=== PATIENT | male | born 1960 | race Caucasian/White ===

== ENCOUNTER 2020-03-11 16:45 | Emergency (ER) | payer OTHER, SELFPAY ==
--- NOTE | ~2020-03-11 | XR_ITS ---
EXAMINATION: XR abdomen/kub 1V INDICATION: Right flank pain TECHNIQUE: Supine views of the abdomen were obtained on 2 radiographs. COMPARISON: 06/29/2004 FINDINGS: A 5 mm calcification projects in the expected location of the right proximal ureter at the level of the right L3 transverse process. A 5 mm stone projects in the left mid kidney. There are mul tiple phleboliths of the pelvis. Changes of suspected left inguinal hernia repair are noted. The ameena l gas pattern is normal. A moderate volume of colonic stool is present. IMPRESSION: 1. Likely right proximal ureteral stone. 2. Left nephrolithiasis. Reviewed, dictated and finalized at location A.
--- NOTE | 2020-03-11 16:50 | ED.GENADULT ---
HPI - General Adult General Chief complaint: Urogenital-Male Stated complaint: Pos kidney stone Time Seen by Provider: 03/11/20 16:49 Source: patient Mode of arrival: ambulatory Limitations: no limitations History of Present Illness HPI narrative: 60-year-old male patient presents to the [facility] with complaints of urinary symptoms that started about 130 this afternoon. Patient states he has had some right-sided back pain that wraps around to his side and radiates down the groin. Patient states it is painful when he sits at times. Patient denies any pain with urination or any odor to the urine. Patient states he has had a little bit of nausea but denies vomiting or diarrhea. Denies any fevers, body aches or chills. Patient states he has had kidney stones before in the past and is always passed of his and denies any issues in needing surgery for this in the past. Related Data Allergies Allergy/AdvReac Type Severity Reaction Status Date / Time No Known Allergies Allergy Mild Verified 03/11/20 16:54 Review of Systems Review of Systems: Narrative: CONSTITUTIONAL: Denies fever, chills, or sweats. EYES: Denies visual changes, redness, or discharge. ENT: Denies rhinorrhea, congestion, sore throat, or otalgia. CARDIOVASCULAR: Denies chest pain, palpitations, or edema. RESPIRATORY: Denies cough or dyspnea. GASTROINTESTINAL: Denies abdominal pain, positive nausea, denies vomiting, or diarrhea. GENITOURINARY: Denies dysuria or hematuria. SKIN: Denies rash or itching. MUSCULOSKELETAL: Positive right-sided low back pain with radiation to the right side groin, denies joint pain, or myalgia. NEUROLOGIC: Denies headache, numbness, or weakness. PSYCHIATRIC: Denies anxiety or depression. [facility] Past Medical History Medical History Erectile dysfunction Essential (primary) hypertension Hypertension Nephrolithiasis Umbilical hernia without mention of obstruction or gangrene Surgical History Surgical History History of inguinal hernia repair, bilateral 1986 History of sinus surgery 1980s Family History Family History Mother Breast cancer Father Emphysema, unspecified Social History Social History Smoking status: Never smoker Second hand tobacco smoke exposure: No Alcohol intake: current Substance use: never Substance use type: does not use Comments At the time of my signature I agree with nursing past medical history, surgical, social, and family history. There is no relevant family history pertinent to the presenting complaint. Exam Narrative: Exam Narrative: GENERAL: Well-appearing, well-nourished, and in no acute distress. HEAD: Normocephalic, atraumatic. EYES: PERRLA and EOMI. ENT: Nares clear, no rhinorrhea or epistaxis. Mucous membranes moist. NECK: Supple. No lymphadenopathy CHEST: Clear to auscultation. No respiratory distress. HEART: Regular rate and rhythm. No murmur heard. Normal peripheral pulses. ABDOMEN: Soft, nontender, nondistended, normal active bowel sounds. Very slight tenderness noted on right-sided CVA percussion. EXTREMITIES: Normal range of motion. No edema. SKIN: Warm, dry, no rash. NEURO: No focal deficits. Alert and oriented x3. Course Reevaluation(s) Reevaluation #1: Reevaluated patient after KUB had resulted. Discussed with him that it does show that he has some kidney stones in the bilateral sides. Discussed with patient about his pain. Patient states that his pain right now started 3 out of 10 states it is not excruciating and is tolerable. Discussed with patient that since his urine does not show any evidence of infection and the pain does not seem to be that bad right now I will go ahead and discharge him home with some Flomax to help propel down the kidney stones
[2020-03-11 16:51] VITALS: BP 172/88; PULSE 78; RESP 12; TEMP 37.1; O2SAT 99
== END 2020-03-11 17:47 | disposition home or self-care (01) ==
PROVIDERS: Emergency Provider Nurse Practitioner Family; PCP Family Medicine
DX: N20.0 Calculus of kidney (principal); Z87.442 Personal history of urinary calculi
CPT/HCPCS: 74018; 81003; 99213; G0463

== ENCOUNTER 2020-03-13 12:51 | Day surgery (SDC) | payer OTHER, SELFPAY ==
[2020-03-13] VITALS (11 sets, daily range): BP systolic 103–159; BP diastolic 58–88; PULSE 70–91; RESP 11–18; TEMP 36.8–37.3; O2SAT 96–100; BMI 26.3
--- NOTE | ~2020-03-13 | CT_ITS ---
EXAMINATION: CT abdomen pelvis wo con DATE: 03/13/2020 15:01 INDICATION: Flank pain. History of kidney stones. TECHNIQUE: Computed tomography (CT) of the abdomen and pelvis was performed without intravenous contr ast. The dose-length product was 266.18 mGy-cm. Automated exposure control and iterative reconstructi on technique were employed. COMPARISON: CT dated 06/29/2004 FINDINGS: Bibasilar dependent atelectasis. Heart size normal. No significant pleural or pericardial e ffusion. There is a 5 mm mid right ureteral stone with mild hydronephrosis. There are nonobstructing bilateral renal stones. The liver, spleen, pancreas, adrenal glands are unremarkable. Bowel pattern is nonobstructive. Small fat-containing umbilical hernia. Normal appendix. Mild lumbar spondylosis. No acute osseous abnormali ty. There are surgical changes of left inguinal hernia repair. No free air or free fluid. IMPRESSION: 1. 5 mm right mid ureteral stone at the L4 level with mild hydronephrosis. 2: Bilateral nephrolithiasis. Reviewed, dictated and finalized at location A.
--- NOTE | ~2020-03-13 | XR_ITS ---
EXAMINATION: XR retrograde pyelogram RT INDICATION: Right ureteral stone TECHNIQUE: Five intraoperative fluoroscopic images are submitted for review. Total fluoroscopic time is 50.3 seconds. The DAP is [id number] mGym2. COMPARISON: None available FINDINGS: Right-sided retrograde pyelogram demonstrates moderate right hydronephrosis. A right manager internship al ureteral stent is placed in expected position. Please refer to procedure note for full details. IMPRESSION: 1. Moderate right hydronephrosis with right internal ureteral stent in expected position. Reviewed, dictated and finalized at location A.
--- NOTE | ~2020-03-13 | XR_ITS ---
EXAMINATION: XR abdomen/kub 1V INDICATION: Flank pain, ureteral stone TECHNIQUE: Supine views of the abdomen were obtained on 2 radiographs. COMPARISON: CT from today FINDINGS: The known right ureteral stone is not well demonstrated. A 5 mm calcification projecting ne ar the right sacrum could reflect interval distal migration of the stone. There is a 5 mm stone in th e left kidney. A moderate volume of colonic stool is present. The bowel gas pattern is normal. There are surgical changes of bilateral inguinal hernia repair. IMPRESSION: 1. Possible interval distal migration of the known right ureteral stone projecting over the right sac rum. 2. Left nephrolithiasis. Reviewed, dictated and finalized at location A. IMPRESSION: 1. Possible interval distal migration of the known right ureteral stone project ing over the right sacrum. 2. Left nephrolithiasis.
[2020-03-13 13:08] LABS: Basophils Absolute Auto 0.1 K/mm3 (0.0-0.1); Basophils Percent Auto 0.6 % (0.2-1.2); Eosinophils Absolute Auto 0.1 K/mm3 (0-0.3); Hematocrit 41.9 % (42.0-52.0); Hemoglobin 14.4 g/dL (14.0-18.0); Immature Granulocyte Absolute 0.04 K/mm3 (0.00-0.031); Immature Granulocyte Percent A 0.4 % (0-0.5); Lymphocytes Absolute Auto 0.85 K/mm3 (0.9-3.2); Lymphocytes Percent Auto 8.6 % (18.3-44.2); Mean Corpuscular HGB Conc 34.4 g/dl (32-36); Mean Corpuscular Hemoglobin 29.4 pg (26-34); Mean Corpuscular Volume 85.7 fl (80-100); Mean Platelet Volume 8.9 fl (7.4-10.4); Monocytes Absolute Auto 0.5 K/mm3 (0.1-0.6); Neutrophils Absolute Auto 8.4 K/mm3 (1.3-6.7); Neutrophils Percent Auto 84.4 % (45.5-73.1); Platelet Count Result 199 k/mm3 (150-375); Red Blood Count 4.89 M/mm3 (4.6-6.20); Red Cell Distribution Width 12.6 % (11.5-14.5); White Blood Count 9.9 K/mm3 (4.5-10.0)
[2020-03-13 13:18] LABS: Anion Gap 5 mmol/L (8-16); Blood Urea Nitrogen 21 mg/dL (9-20); Calcium 9.4 mg/dL (8.4-10.2); Carbon Dioxide 31 mmol/L (22-30); Chloride 99 mmol/L (98-107); Estimated CRCL calculation 72 ml/min; Estimated Glomerular Filt Rate > 60; Glucose 132 mg/dL (75-110); Potassium 4.1 mmol/L (3.4-5.0); Sodium 135 mmol/L (137-145)
[2020-03-13 13:19] LABS: Add Urine Microscopic? YES; Appearance Urine Clear (Clear); Bilirubin Urine Negative (Negative); Blood Urine 3+ (Negative); Color Urine Yellow (Yellow); Glucose Urine UA Negative (Negative); Ketones Urine Negative (Negative); Leukocyte Esterase Ur Negative LEU/UL (Negative); Mucus Urine Heavy /lpf; Nitrate Urine Negative (Negative); Protein Urine 2+ mg/dL (Negative); RBC Urine >75 /hpf (0-2); Specific Grav Ur 1.024 (1.001-1.035); Urobilinogen Urine Negative mg/dL (<2.0)
[2020-03-13] MEDS: ONDANSETRON INJ 4 MG/2 ML VIAL IV PUSH (14:27)
[2020-03-13] MEDS: SODIUM CHLORIDE 0.9% IV 1,000 ML 999 ML IV CONT (14:27)
--- NOTE | 2020-03-13 14:55 | ED.ABDPAIN ---
HPI - Abdominal Pain General Chief Complaint: Urogenital-Male <Júnior Hylton TyLILIANA Last Filed: 03/13/20 17:11> Stated Complaint: kidney stone <Júnior Hylton TyLILIANA Last Filed: 03/13/20 17:11> Time Seen by Provider: 03/13/20 14:03 <Júnior Hylton TyLILIANA Last Filed: 03/13/20 17:11> Source: patient <Júnior CrawfordLILIANA Jm Last Filed: 03/13/20 17:11> Mode of arrival: ambulatory <Júnior Hylton TyLILIANA Last Filed: 03/13/20 17:11> Limitations: no limitations <Júnior Hylton TyLILIANA Last Filed: 03/13/20 17:11> History of Present Illness HPI narrative: Patient is a 60-year-old male who presents to emergency department for evaluation of right flank pain coupled with nausea and vomiting over the last several days with history of urolithiasis seen in urgent care given Flomax and pain medication but continues to have pain and nausea and vomiting today patient presents uncomfortable in no distress <Júnior Hylton TyOLYMaxim Last Filed: 03/13/20 17:11> Related Data Allergies/Adverse Reactions: Allergies Allergy/AdvReac Type Severity Reaction Status Date / Time No Known Allergies Allergy Mild Verified 03/11/20 16:54 <Júnior Hylton TyLILIANA Last Filed: 03/13/20 17:11> Review of Systems Review of Systems: All systems reviewed & are unremarkable except as noted in HPI and below <Júnior Hylton TyLILIANA Last Filed: 03/13/20 17:11> [facility] Past Medical History Medical History: Medical History Erectile dysfunction Essential (primary) hypertension Hypertension Nephrolithiasis Umbilical hernia without mention of obstruction or gangrene <Júnior Crawford PA-C Last Filed: 03/13/20 17:11> Surgical History Surgical History: Surgical History History of inguinal hernia repair, bilateral 1986 History of sinus surgery 1980s <Júnior Crawford PA-C Last Filed: 03/13/20 17:11> Family History Family History: Family History Mother Breast cancer Father Emphysema, unspecified <Júnior Crawford PA-C - Last Filed: 03/13/20 17:11> Social History Social History: Social History Smoking status: Never smoker Second hand tobacco smoke exposure: No Alcohol intake: current Substance use: never Substance use type: does not use Gender identity (if verbalized by the patient): Male <Júnior Crawford PA-C - Last Filed: 03/13/20 17:11> Exam Narrative: Exam Narrative: GENERAL: Well-appearing, well-nourished, and in no acute distress. HEAD: Normocephalic, atraumatic. EYES: PERRLA and EOMI. ENT: Nares clear, no rhinorrhea or epistaxis. Mucous membranes moist. CHEST: Clear to auscultation. No respiratory distress. No wheezes rales or rhonchi HEART: Regular rate and rhythm. No murmur heard. Normal peripheral pulses. ABDOMEN: Soft, right-sided abdominal tenderness to palpation, nondistended, normal active bowel sounds. EXTREMITIES: Normal range of motion. No edema. SKIN: Warm, dry, no rash. NEURO: No focal deficits. Alert and oriented x3. PSYCH: Normal mood and affect. <Júnior Crawford PA-C - Last Filed: 03/13/20 17:11> Course Course Emergency Course: Patient was seen in the emergency department by urology will be <Júnior Crawford PA-C - Last Filed: 03/13/20 17:11> TEAM ASSEMBLER/PA Physician Supervision Patient presenting for evaluation of right flank pain. Vital signs stable the time of assessment. Found to have 5 mm right ureteral stone. Given degree of pain, urology was consulted, patient to go to the OR for likely stent placement. For this patient encounter, I reviewed the TEAM ASSEMBLER or PA documentation, treatment plan, and medical decision making; and I had [id number] time with this patient. <Payton Lewis
[2020-03-13] MEDS: MORPHINE SULFATE (*CRX) 4 MG/ML INJ IV PUSH (15:14)
--- NOTE | 2020-03-13 16:16 | WPDURCON ---
Assessment and Plan Assessment and plan (1) Ureteral calculus, right: Code(s): N20.1 - Calculus of ureter Status: Acute Assessment and Plan: Obtain KUB for surgical planning purposes. Plan to go to the OR: Cystoscopy, Right Stent Placement, retrograde pyelogram. Obtain Consent Keep NPO. Plan to discharge home after case and follow up for outpatient Right ESWL. Urology Consult Note HPI Date Seen: 03/13/20 Primary Care Provider: Niesha Marc MD Consult Narrative Narrative: Bryan Yang is a 60 year old male who presents for worsening right flank pain that started on Wednesday. He developed right flank pain, nausea, vomiting, chills and gross hematuria on Wednesday and was diagnosed via KUB with a right proximal ureteral stone at that time. He was given Flomax and Hydrocodone and states the pain improved until this morning when it worsened again and he developed right flank pain. He denies dysuria, fever or abdominal pain. His UA shows occult blood, otherwise not suggestive of a UTI, culture is pending. WBC is 9.9 and creatinine is 1.10. CT abdomen/pelvis today confirms that the stone has moved to the right mid ureter and measures 5mm. He also has a 5mm left non obstructive stone. Morphine was given but only improved stone to a pain level of 6/10. Review of Systems Cardiovascular: Cardiovascular: Denies chest pain Respiratory: Respiratory: Reports no additional respiratory complaints Gastrointestinal: Gastrointestinal: Denies abdominal pain, Reports nausea and Reports vomiting Genitourinary: Genitourinary: Reports hematuria, Denies genital pain, Denies dysuria, Reports flank pain and Denies urinary frequency [facility] Past Medical History Medical History Erectile dysfunction Essential (primary) hypertension Hypertension Nephrolithiasis Umbilical hernia without mention of obstruction or gangrene Surgical History Surgical History History of inguinal hernia repair, bilateral 1986 History of sinus surgery 1980s Family History Family History Mother Breast cancer Father Emphysema, unspecified Social History Social History Smoking status: Never smoker Second hand tobacco smoke exposure: No Alcohol intake: current Substance use: never Substance use type: does not use Gender identity (if verbalized by the patient): Male Meds Home Medications and Allergies Home Medications Medication Instructions Recorded Confirmed Type quinapril 20 See Rx Instructions .ROUTE 12/13/19 03/11/20 Rx mg-hydrochlorothiazide 25 mg tablet .COMPLEX #90 tablet hydrocodone-acetaminophen [[place]] 1 tablet PO Q6H PRN #10 tablet 03/11/20 Rx tamsulosin [Flomax] 0.4 mg PO DAILY #14 cap 03/11/20 Rx Allergies Allergy/AdvReac Type Severity Reaction Status Date / Time No Known Allergies Allergy Mild Verified 03/11/20 16:54 Vital Signs Vital Signs - 24 hr 03/13/20 12:54 03/13/20 15:14 Temperature 98.4 F Pulse Rate 90 91 Respiratory Rate 18 18 Blood Pressure 146/83 H 150/88 H Pulse Oximetry 98 96 Exam Resp: Effort & Inspection: normal respiratory effort Cardio: Rate: regular rate GI: GI Palp: Yes Soft to palpation and No Tenderness to palpation present (GI) : General: Yes CVA tenderness on the right Extrem: General: no edema Results Labs CBC & Chem 7: 03/13/20 12:59 03/13/20 12:59 Labs: Short CBC 03/13/20 Range/Units 12:59 WBC 9.9 (4.5-10.0) K/mm3 Hgb 14.4 (14.0-18.0) g/dL Hct 41.9 L (42.0-52.0) % Plt Count 199 (150-375) k/mm3 BMP 03/13/20 12:59 Sodium 135 L Potassium 4.1 Chloride 99 Carbon Dioxide 31 H BUN 21 H Creatinine 1.10 Glucose 132 H Calcium 9.4 Urine
--- NOTE | 2020-03-13 17:05 | PC.NURSE ---
Spoke with LAVELL rios in OR. He will be obtaining pt consent in pre-op
--- NOTE | 2020-03-13 17:19 | WPDANESEPPF ---
Anes - Initial Pre Proc Eval Procedure: Operation Date: 03/13/20 18:00 Proposed Procedures p Right Cystoscopy, Right Retrograde Pyelogram, Possible Right Stone Extraction, Possible Right Stent Placement - Flores Dorado MD Date/Time: 03/13/20 17:19 Surgeon: Flores Dorado MD Pre Op Diagnosis: kidney stone Patient Data Age: 60 Gender: M Height: 6 ft 2 in Weight: 92.99 kg Last Vital Signs Temp 36.9 C 03/13/20 17:04 Pulse 87 03/13/20 17:04 Resp 16 03/13/20 17:04 BP 138/71 03/13/20 17:04 Pulse Ox 100 03/13/20 17:04 Allergies Allergy/AdvReac Type Severity Reaction Status Date / Time No Known Allergies Allergy Mild Verified 03/11/20 16:54 Home Medications Medication Instructions Recorded Confirmed Type quinapril 20 See Rx Instructions .ROUTE 12/13/19 03/11/20 Rx mg-hydrochlorothiazide 25 mg tablet .COMPLEX #90 tablet hydrocodone-acetaminophen [[place]] 1 tablet PO Q6H PRN #10 tablet 03/11/20 Rx tamsulosin [Flomax] 0.4 mg PO DAILY #14 cap 03/11/20 Rx Laboratory Tests 03/13/20 03/13/20 03/13/20 12:59 12:59 13:03 WBC 9.9 K/mm3 K/mm3 (4.5-10.0) RBC 4.89 M/mm3 M/mm3 (4.6-6.20) Hgb 14.4 g/dL g/dL (14.0-18.0) Hct 41.9 % L % (42.0-52.0) MCV 85.7 fl fl (80-100) MCH 29.4 pg pg (26-34) MCHC 34.4 g/dl g/dl (32-36) RDW 12.6 % % (11.5-14.5) Plt Count 199 k/mm3 k/mm3 (150-375) MPV 8.9 fl fl (7.4-10.4) Immature Gran % (Auto) 0.4 % % (0-0.5) Neut % (Auto) 84.4 % H % (45.5-73.1) Lymph % (Auto) 8.6 % L % (18.3-44.2) Pine % (Auto) 5.0 % % (2.6-8.5) Eos % (Auto) 1.0 % % (0-4.4) Baso % (Auto) 0.6 % % (0.2-1.2) Lymph # (Auto) 0.85 K/mm3 L K/mm3 (0.9-3.2) Pine # (Auto) 0.5 K/mm3 K/mm3 (0.1-0.6) Eos # (Auto) 0.1 K/mm3 K/mm3 (0-0.3) Baso # (Auto) 0.1 K/mm3 K/mm3 (0.0-0.1) Abs Immat Gran (auto) 0.04 K/mm3 H K/mm3 (0.00-0.031) Absolute Neuts (auto) 8.4 K/mm3 H K/mm3 (1.3-6.7) Absolute Nucleated RBC 0.0 K/mm3 K/mm3 (0.0-0.012) Nucleated RBC % 0.0 % % (0.0-0.2) Sodium 135 mmol/L L mmol/L (137-145) Potassium 4.1 mmol/L mmol/L (3.4-5.0) Chloride 99 mmol/L mmol/L (98-107) Carbon Dioxide 31 mmol/L H mmol/L (22-30) Anion Gap 5 mmol/L L mmol/L (8-16) BUN 21 mg/dL H mg/dL (9-20) Creatinine 1.10 mg/dL mg/dL (0.7-1.3) Estim Creat Clear Calc 72 ml/min ml/min Estimated GFR > 60 (59 - ) Glucose 132 mg/dL H mg/dL (75-110) Calcium 9.4 mg/dL mg/dL (8.4-10.2) Urine Color Yellow (Yellow) Urine Appearance Clear (Clear) Urine pH 5.0 (5.0-9.0) Ur Specific Fults 1.024 (1.001-1.035) Urine Protein 2+ mg/dL H mg/dL (Negative) Urine Glucose (UA) Negative mg/dL mg/dL (Negative) Urine Ketones Negative mg/dL mg/dL (Negative) Ur Blood (Man) 3+ H (Negative) Urine Nitrate Negative (Negative) Urine Bilirubin Negative (Negative) Urine Urobilinogen Negative mg/dL mg/dL (<2.0) Leukocyte Esterase Rfl Negative MOLLY/UL MOLLY/UL (Negative) Urine RBC >75 /hpf H /hpf (0-2) Urine WBC 10-15 /hpf H /hpf Urine Mucus Heavy /lpf H /lpf Patient hx anesthesia problems: none Family hx anesthesia problems: none PMFSH Past Medical History Medical History Erectile dysfunction Essential (primary) hypertension Hypertension Nephrolithiasis Umbilical hernia without mention of obstruction or gangrene Surgical History Surgical History History of ingu
[2020-03-13] MEDS: SCOPOLAMINE 1.5 MG PATCH TRANSDERM (17:38)
[2020-03-13] MEDS: LACTATED RINGERS 1,000 ML 30 ML IV CONT (17:39)
[2020-03-13] MEDS: ceFAZolin SODIUM 1 GM VIAL 2 GM IV PUSH (18:00)
[2020-03-13] MEDS: LIDOCAINE HCL 2% GEL UROJET 10 ML PKG MUCOUS MEM (18:07)
[2020-03-13] MEDS: KETOROLAC 30 MG/ML VIAL (*BKC) 15 MG IV PUSH (18:09)
--- NOTE | 2020-03-13 18:18 | PM.PROC ---
Procedure Note - Detailed Date of procedure: 03/13/20 Pre-op diagnosis: kidney stone Procedure performed: cytoscopy, right PRG and Right ureteral stent insertion Description of procedure: informed consent obtained. patient induced with anesthesia. Prepped in dorsal lithotomy position. 22F scope inserted via urethra into bladder. No mucosal abnormalities. The right ureteral orifice was cannulated. RPG showed moderate right hydroureteronephrosis to mid ureter. Wire placed into renal pelvis and 6F stent placed over the wire with curl in upper pole and curl in bladder. Lidocaine instilled. Pt to pacu in stable condition. Surgeon: Flores Dorado MD Complications: No immediate complications Condition: stable Disposition: PACU
== END 2020-03-13 19:55 | disposition home or self-care (01) ==
LOC: ANHED 16:36 → ANHSURGERY 16:55
PROVIDERS: Emergency Medicine; Emergency Provider Emergency Medicine; PCP Family Medicine; Visit Provider Urology
PROC: (CPT 52352; principal; 2020-03-13 18:00)
DX: N13.2 Hydronephrosis with renal and ureteral calculous obstruction (principal); I10 Essential (primary) hypertension
CPT/HCPCS: 52332; 36415; 74018; 74176; 74420; 80048; 81001; 85025; 87086; 96365; 96375; 99285; A9270; C1758; C1769; C1887; C2617; J0131; J0690; J1100; J1885; J2250; J2270; J2405; J2704; J7030; J7120; Q9966

== ENCOUNTER 2020-03-19 10:36 | Outpatient (CLI) | payer OTHER, SELFPAY ==
--- NOTE | ~2020-03-19 | XR_ITS ---
XR abdomen/kub 1V DATE: 03/19/2020 10:53 INDICATION: Right ureteral stone TECHNIQUE: AP projection, 2 views COMPARISON: 03/13/2020 right retrograde pyelogram 03/13/[address] abdomen pelvis 03/13/2020 KUB FINDINGS: A right internal urinary stent is present. There is an approximately 5 mm calcification ove rlying the right ureter immediately adjacent to the stent at the lower L4 level, likely a calcified u reteral calculus. Calcifications are noted overlying both kidneys consistent with bilateral nephrolithiasis.. Status post bilateral inguinal herniorrhaphy. IMPRESSION: 5 mm calcified calculus of mid right ureter Bilateral nephrolithiasis Right internal urinary stent Reviewed, dictated and finalized at Location A. Reviewed, dictated and finalized at location B.
== END 2020-03-19 10:37 | disposition home or self-care (01) ==
PROVIDERS: PCP Family Medicine; Visit Provider Nurse Practitioner Adult Health
DX: N20.2 Calculus of kidney with calculus of ureter (principal)
CPT/HCPCS: 74018

== ENCOUNTER 2020-03-20 02:47 | Outpatient (CLI) | payer OTHER, SELFPAY ==
[2020-03-20 18:24] LABS: SARS-CoV-2 RNA PCR Negative
== END 2020-03-20 02:48 | disposition home or self-care (01) ==
LOC: ANHCOVIDDT 02:47
PROVIDERS: PCP Family Medicine; Visit Provider Urology
DX: Z01.812 Encounter for preprocedural laboratory examination (principal); Z20.828 Contact with and (suspected) exposure to other viral communicable diseases
CPT/HCPCS: 87635; C9803; U0003

== ENCOUNTER 2020-03-20 07:49 | Outpatient (CLI) | payer OTHER, SELFPAY ==
--- NOTE | 2020-03-20 07:50 | ECG_ITS ---
Measurements Intervals [place] Rate: 69 P: 38 NE: 144 QRS: 7 QRSD: 107 T: 20 QT: 387 QTc: 415 Interpretive Statements SINUS RHYTHM EARLY PRECORDIAL R/S TRANSITION POSSIBLE LEFT VENTRICULAR HYPERTROPHY BASELINE ARTIFACT- I, II, AVR, AVL BORDERLINE ECG Electronically Signed On 03-20-2020 8:12:15 CDT by Merrill Lindsey D.O.
[2020-03-20 08:18] LABS: Partial Thromboplastin Time 25.9 SECONDS (22.3-36.8); Prothrombin Time 12.8 Seconds (11.1-14.7)
== END 2020-03-20 07:50 | disposition home or self-care (01) ==
LOC: ANHSURGERY 07:50
PROVIDERS: PCP Family Medicine; Visit Provider Urology
DX: I10 Essential (primary) hypertension (principal); N20.1 Calculus of ureter
CPT/HCPCS: 36415; 85610; 85730; 93005

== ENCOUNTER 2020-03-22 01:00 | Day surgery (SDC) | payer OTHER, SELFPAY ==
[2020-03-14 13:14] VITALS: BMI 27.1
[2020-03-22] VITALS (8 sets, daily range): BP systolic 118–142; BP diastolic 68–80; PULSE 63–73; RESP 16–20; TEMP 36.1–37.1; O2SAT 97–100
--- NOTE | ~2020-03-22 | XR_ITS ---
XR abdomen/kub 1V DATE: 03/22/2020 08:40 INDICATION: Lithotripsy TECHNIQUE: AP projection COMPARISON: 03/19/2020 KUB FINDINGS: Right internal urinary stent is unchanged in position since 03/19/2020. Previous reported mi d right ureteral 5 mL calcified calculus is now situated at the proximal right ureter. Left nephrolithiasis. No evidence of bowel obstruction. The psoas shadows are intact. No visceromegaly is detected. Evidence of bilateral inguinal herniorrhaphy. Degenerative change of the thoracic and lumbar spine. IMPRESSION: Right internal urinary stent Approximately 5 mm proximal right ureteral calcified calculus Reviewed, dictated and finalized at Location A. Reviewed, dictated and finalized at location B.
--- NOTE | 2020-03-22 08:55 | WPDHPUPDATE1 ---
History and Physical Update Update Date/Time: 03/22/20 08:55 History and Physical has been reviewed, including an updated exam of the patient. There are NO changes in the patient's condition. Risks, benefits, and alternatives have been discussed and questions answered. Patient agrees to proceed with procedure. Proceed with right ureteral eswl
[2020-03-22] MEDS: LACTATED RINGERS 1,000 ML 30 ML IV CONT ×2 (09:05→10:47)
--- NOTE | 2020-03-22 09:19 | WPDANESEFPP ---
Anes - Eval Final PreProcedure Day of Procedure 03/22/20 09:19 Patient weight: overweight Heart: regular rate and rhythm Lungs: clear to auscultation Airway: Mallampati scale class II Neurological: alert and oriented Last oral intake: >/= 8 hours ASA classification: II Emergent: no Anesthetic plan: proceed Anesthesia type and monitoring: general LMA and standard monitoring Informed Consent: The patient's anesthetic plan and its attendant risks and benefits were discussed with the patient/family/POA. Questions were solicited and answers provided to the satisfaction of the patient/family/POA.
[2020-03-22] MEDS: ceFAZolin 2 GM/D5W 50 ML 2 GM/50 ML BAG IVPB (10:05)
--- NOTE | 2020-03-22 10:34 | P.OP_ITS ---
Procedure Note - Detailed Date of procedure: 03/22/20 Pre-op diagnosis: Right Ureteral Stone Post-op diagnosis: same Procedure performed: ESWL right ureteral calculus Description of procedure: patient is taken to the operative suite and noel ectly identified. Once anesthesia was obtained the stone was localized in both planes. There appeared to be good fragmentation of the stone. Patient was taken recovery room stable condition. He will follow up 7-10 days with a KUB. Anesthesia: GLMA Surgeon: Khoa Geronimo MD Drains: No Packing: No Pathology: none sent Complications: No immediate complications Condition: stable Disposition: PACU
== END 2020-03-22 12:35 | disposition home or self-care (01) ==
PROVIDERS: PCP Family Medicine; Visit Provider Urology
PROC: (CPT 50590; principal; 2020-03-22 11:30)
DX: N20.1 Calculus of ureter (principal); Z96.0 Presence of urogenital implants
CPT/HCPCS: 50590; 36415; 74018; 85610; 85730; 87635; 93005; C9803; J0690; J1100; J2250; J2405; J2704; J3010; J7120; U0003

== ENCOUNTER 2020-04-04 10:07 | Outpatient (CLI) | payer OTHER, SELFPAY ==
--- NOTE | ~2020-04-04 | XR_ITS ---
EXAMINATION: XR abdomen/kub 1V INDICATION: Kidney stones TECHNIQUE: Supine views of the abdomen were obtained on 2 radiographs. COMPARISON: 03/22/2020 FINDINGS: A right internal ureteral stent is in expected position. A 5 mm stone previously seen near the right proximal ureter has migrated to the mid ureter and projects over the L5 transverse process. There are stones measuring 1 to 2 mm in the right kidney. Stones measuring up to 5 mm are present in the left kidney. The bowel gas pattern is normal. There are phleboliths of the pelvis. Surgical clip s are also noted in the pelvis. IMPRESSION: 1. Right internal ureteral stent in expected position with interval distal migration of a 5 mm stone from the proximal ureter to the mid ureter. 2. Bilateral nephrolithiasis. Reviewed, dictated and finalized at location A. IMPRESSION: 1. Right internal ureteral stent in expected position with interval distal migr ation of a 5 mm stone from the proximal ureter to the mid ureter. 2. Bilateral nephrolithiasis.
== END 2020-04-04 10:08 | disposition home or self-care (01) ==
LOC: ANHIMG 10:11
PROVIDERS: PCP Family Medicine; Visit Provider Nurse Practitioner Adult Health
DX: N20.0 Calculus of kidney (principal)
CPT/HCPCS: 74018

== ENCOUNTER 2020-05-24 10:07 | Emergency (ER) | payer OTHER, SELFPAY ==
--- NOTE | ~2020-05-24 | XR_ITS ---
XR lumbar spine 2-3V 05/24/2020 10:43 Indication: Low back pain after fall Procedure: 3 views lumbar spine Comparison: No prior studies for comparison. Findings: There is mild disc narrowing at L5-S1. Vertebral body heights are maintained. Prominent josefa dging osteophytes at multiple levels. There are facet degenerative changes of the lower lumbar spine. Impression: 1: Mild lumbar spondylosis. Reviewed, dictated and finalized at location B. IVING INSPECTOR Impression: 1: Mild lumbar spondylosis.
--- NOTE | ~2020-05-24 | XR_ITS ---
XR forearm RT 2V 05/24/2020 10:43 INDICATION: Right arm pain PROCEDURE: 2 views right forearm COMPARISON: No prior studies for comparison. FINDINGS: Fracture, dislocation or subluxation is not identified. The soft tissues appear within norm al limits. No foreign bodies are identified. IMPRESSION: 1: NO ACUTE BONE OR JOINT ABNORMALITY IDENTIFIED. Reviewed, dictated and finalized at location B. L DIETITIAN
[2020-05-24 10:15] VITALS: BP 141/94; PULSE 81; RESP 20; TEMP 36.5; O2SAT 96
--- NOTE | 2020-05-24 10:37 | ED.FALL ---
HPI - Fall General Chief Complaint: Fall Stated Complaint: back injury/rt arm/head Source: patient Mode of arrival: ambulatory Limitations: no limitations History of Present Illness HPI Narrative: Patient is a 60-year-old male who presents complaining of lower back pain and right arm pain after a fall yesterday. He reports slipping and falling on concrete floor hitting back had in right arm. Abrasion the right arm, mild swelling. Full range of motion. During interview, patient's speech is slurred. Patient reports that is not normal and has no history. Patient did take 5 mg Apex earlier this a.m. Patient is complaining of a posterior right sided headache at this time with a pain level of 5/10. complaint: fall Related Data Home Medications Medication Instructions Recorded Confirmed quinapril-hydrochlorothiazide 1 tablet PO DAILY 03/14/20 05/24/20 Allergies Allergy/AdvReac Type Severity Reaction Status Date / Time No Known Allergies Allergy Mild Verified 05/24/20 10:27 Review of Systems Review of Systems: Narrative: CONSTITUTIONAL: Denies fever, chills, or sweats. EYES: Denies visual changes, redness, or discharge. ENT: Denies rhinorrhea, congestion, sore throat, or otalgia. CARDIOVASCULAR: Denies chest pain, palpitations, or edema. RESPIRATORY: Denies cough or dyspnea. GASTROINTESTINAL: Denies abdominal pain, nausea, vomiting, or diarrhea. GENITOURINARY: Denies dysuria or hematuria. SKIN: Denies rash or itching. MUSCULOSKELETAL: Lower back pain, right arm pain, neck pain NEUROLOGIC: Reports headache, numbness, dizziness, or weakness. PSYCHIATRIC: Denies anxiety or depression. [facility] Past Medical History Medical History (Updated 05/24/20 @ 11:15 by MANJU Groves) Erectile dysfunction Essential (primary) hypertension Hypertension Nephrolithiasis Umbilical hernia without mention of obstruction or gangrene Surgical History Surgical History History of inguinal hernia repair, bilateral 1986 History of sinus surgery 1980s Family History Family History Mother Breast cancer Father Emphysema, unspecified Social History Social History Smoking status: Never smoker Second hand tobacco smoke exposure: No Alcohol intake: current Substance use: never Substance use type: does not use Gender identity (if verbalized by the patient): Male Spiritual care concerns: No Exam Narrative: Exam Narrative: GENERAL: Well-appearing, well-nourished, and in no acute distress. HEAD: Normocephalic, atraumatic. EYES: EOMI. PERRL. No redness or drainage. ENT: Mucous membranes pink and moist. Nares clear. No rhinorrhea. TMs normal bilaterally. Throat normal. Uvula midline. NECK: Posterior tenderness with palpation CHEST: No respiratory distress. HEART: Regular rate and rhythm. MUSCULOSKELETAL: No bony tenderness. EXTREMITIES: Normal range of motion. No edema. SKIN: Warm, dry, no rash. NEURO: Patient appears to have slurred speech as well as extended time answering questions, alert and oriented x3. Gait steady. PSYCH: Normal affect. No signs of depression or anxiety. Course Course Emergency Course: During assessment of patient, patient was found to have marked slurred speech. No facial droop, pupils equal, hydraulic governor assembler are equal. Patient is not on blood thinners. Discussed with patient the need for further evaluation in the emergency department at this time as well as possible further diagnostic testing. Patient agrees. Discussed with patient that this could be an urgent situation EMS transport is mode of choice, patient refuses. Patient has a motorcycle delivery driver out in the car at this time and reports that he will go straight to [place] emergency department. Report called to [place] ED, Warner FORD given report. Vital Signs Vital signs:
--- NOTE | 2020-05-24 11:20 | PC.NURSE ---
1020-During triage discussed with pt probability of sending over to [facility] ED for further eval and treatment due to neck pain and headache reported earlier and slurring with stuttering and hunting for answers noted. Pt verbalized understanding and thought he may need to go over to ED. Pt does have a powder truck driver with him. 1106-Discussed with pt-provider desire to send pt to ED via EMS. Pt refused EMS transfer and elect to go by private vehicle. Pt states his powder truck driver is his friend, Jennifer and she is nurse.
== END 2020-05-24 11:18 | disposition short-term general hospital (02) ==
PROVIDERS: Emergency Provider Nurse Practitioner; PCP Family Medicine
DX: M54.5 Low back pain (principal); M25.511 Pain in right shoulder; W01.0XXA Fall on same level from slipping, tripping and stumbling without subsequent striking against object, initial encounter; I10 Essential (primary) hypertension
CPT/HCPCS: 72100; 73090; 99214; G0463

== ENCOUNTER 2020-05-24 11:36 | Emergency (ER) | payer OTHER, SELFPAY ==
--- NOTE | ~2020-05-24 | CT_ITS ---
EXAMINATION: CT thoracic lumbar wo con DATE: 05/24/2020 13:12 INDICATION: Back pain. Fall. TECHNIQUE: Computed tomography (CT) of the thoracic and lumbar spine was performed without intravenou s contrast. Automated exposure control and iterative reconstruction technique were employed. The dose -length product was 1579.64 mGy-cm. COMPARISON: CT abdomen and pelvis 03/13/2020 FINDINGS: CT THORACIC SPINE: There is a small sliding hiatal hernia. Calcified right lung nodules and calcified right hilar lymph nodes are consistent with old granulomatous disease. There is mild atelectasis niesha aterally. There is 14 degrees dextroscoliosis of thoracic spine. There is mild chronic anterior wedgi ng of T7-T12 vertebral bodies. There are bridging endplate osteophytes from T2 to L2, consistent with diffuse idiopathic skeletal hyperostosis (DISH). Intervertebral disc heights are normal. There is mi ld hypertrophy of the facet joints at many levels. There is mild right neural foraminal stenosis and T6-T7 and T9-T10 and mild left neural foraminal stenosis at T5-T6 and T8-T9. No central canal stenosi s. CT LUMBAR SPINE: There are bilateral nonobstructing kidney stones measuring up to 5 mm on the left. B one alignment is normal. Vertebral body heights are normal. Intervertebral disc heights are normal. T he following disc levels are specifically discussed: L1-L2: The disc does not extend beyond the endplate margin. There is mild bilateral facet joint hyper trophy. There is mild left neural foraminal stenosis. There is no central canal stenosis. L2-L3: The disc does not extend beyond the endplate margin. There is mild bilateral facet joint osteo arthritis. There is no neural foraminal stenosis. There is no central canal stenosis. L3-L4: The disc does not extend beyond the endplate margin. There is moderate bilateral facet joint o steoarthritis. There is no neural foraminal stenosis. There is no central canal stenosis. L4-L5: The disc is bulging. There is moderate bilateral facet joint osteoarthritis. There is moderate bilateral neural foraminal stenosis. There is mild central canal stenosis. L5-S1: The disc is bulging. There is mild bilateral facet joint osteoarthritis. There is mild bilater al neural foraminal stenosis. There is mild central canal stenosis. IMPRESSION: 1. No fracture. 2. Mild thoracolumbar spondylosis. 3. DISH. 4. Thoracic dextroscoliosis. Reviewed, dictated and finalized at location A. SMITH
--- NOTE | ~2020-05-24 | CT_ITS ---
EXAMINATION: CT cervical spine wo con DATE: 05/24/2020 13:12 INDICATION: Neck pain after fall TECHNIQUE: Computed tomography (CT) of the cervical spine was performed without intravenous contrast. The dose-length product was 359 mGy-cm. Automated exposure control and iterative reconstruction tech nique were employed. COMPARISON: None FINDINGS: No acute fracture or traumatic malalignment. There is disc narrowing and endplate degenerat marta change at multiple levels. Odontoid process within normal limits. There is mild-moderate multilev el uncinate hypertrophy. Mild levocurvature of the cervical spine. Lung apices are normal. No paraspi nal soft tissue abnormalities. IMPRESSION: 1. No acute abnormality of the cervical spine. 2: Moderate cervical spondylosis. Reviewed, dictated and finalized at location B. RATORY ENGINEER
--- NOTE | ~2020-05-24 | CT_ITS ---
EXAMINATION: CT brain wo con DATE: 05/24/2020 13:12 INDICATION: Head injury. Headache. TECHNIQUE: Computed tomography (CT) of the head was performed without intravenous contrast. The mA wa s adjusted according to patient size. Iterative reconstruction technique was employed. The dose-lengt h product was 605.33 mGy-cm. COMPARISON: None FINDINGS: There is no intracranial hemorrhage, acute infarction, or abnormal intracranial mass lesion . The ventricles are normal in size. There is mild mucosal thickening in the paranasal sinuses. There are surgical changes in the paranasal sinuses. There is thickening sclerosis of the alfaro of left ma xillary sinus, which is small. The mastoid air cells are normal. The orbits are normal. IMPRESSION: 1. Normal brain. Reviewed, dictated and finalized at location A. CIATE CIVIL ENGINEER IMPRESSION: 1. Normal brain.
[2020-05-24 11:57] VITALS: BP 156/89; PULSE 73; RESP 18; TEMP 36.6; O2SAT 98
--- NOTE | 2020-05-24 12:54 | ED.FALL ---
HPI - Fall General Chief Complaint: Fall Stated Complaint: fall/back pain/express care Time Seen by Provider: 05/24/20 12:52 Source: patient Mode of arrival: ambulatory Limitations: no limitations History of Present Illness HPI Narrative: Patient 60-year-old male complaining of head neck and back pain after a fall yesterday. Patient denies any loss of consciousness. Patient denies any chest pain, shortness of breath, abdominal pain, pelvic or hip pain, or any other extremity pain or injury. Patient was able to get up and ambulate after the fall Related Data Home Medications Medication Instructions Recorded Confirmed quinapril-hydrochlorothiazide 1 tablet PO DAILY 03/14/20 05/24/20 Allergies Allergy/AdvReac Type Severity Reaction Status Date / Time No Known Allergies Allergy Mild Verified 05/24/20 10:27 Review of Systems Review of Systems: All systems reviewed & are unremarkable except as noted in HPI and below Constitutional: Constitutional: Denies body ache(s), Denies chills, Denies excessive sweating, Denies fatigue, Denies fever(s), Denies headache(s), Denies lethargy, Denies malaise, Denies weakness and Denies weight loss Eyes: Eyes: Denies blurry vision, Denies change in vision and Denies loss of vision ENT: Denies dizziness, Denies ear discharge, Denies headache(s), Denies lip swelling, Denies epistaxis, Denies nasal congestion, Denies throat swelling and Denies tongue swelling Cardiovascular: Cardiovascular: Denies chest pain, Denies chest pain at rest, Denies chest pain with activity, Denies diaphoresis, Denies rapid heart rate, Denies edema, Denies irregular heart rhythm, Denies lightheadedness, Denies palpitations, Denies dyspnea and Denies dyspnea on exertion Respiratory: Respiratory: Denies chest congestion, Denies cough, Denies hemoptysis, Denies dyspnea and Denies dyspnea on exertion Gastrointestinal: Gastrointestinal: Denies abdominal pain, Denies melena, Denies hematochezia, Denies diarrhea, Denies nausea, Denies vomiting and Denies hematemesis Musculoskeletal: Musculoskeletal: Denies abnormal gait, Denies deformity, Denies joint swelling, Denies limited range of motion, Denies neck pain and Denies numbness Neurologic: Denies Abnormal speech present, Denies abnormal gait, Denies confusion, Denies dizziness, Denies focal weakness, Denies loss of vision, Denies numbness, Denies Other visual disturbances, Denies Sensory deficit (Neuro) and Denies weakness Psychiatric: Psychiatric: Denies confusion, Denies depression, Denies auditory hallucinations, Denies homicidal ideation and Denies suicidal ideation Endocrine: Endocrine: Denies cold intolerance, Denies excessive sweating, Denies fatigue, Denies heat intolerance and Denies palpitations Hematologic/Lymphatic: Hematologic/Lymphatic: Denies easy bleeding and Denies easy bruising Allergic/Immunologic: Allergic/Immunologic: Denies lip swelling, Denies throat swelling and Denies tongue swelling PMFSH Past Medical History Medical History (Updated 05/24/20 @ 14:45 by Royal Evans MD) Erectile dysfunction Essential (primary) hypertension Hypertension Nephrolithiasis Umbilical hernia without mention of obstruction or gangrene Surgical History Surgical History History of inguinal hernia repair, bilateral 1986 History of sinus surgery 1980s Family History Family History Mother Breast cancer Father Emphysema, unspecified Social History Social History Smoking status: Never smoker Second hand tobacco smoke exposure: No Alcohol intake: current Substance use: never Substance use type: does not use Gender identity (if verbalized by the patient): Male Spiritual care concerns: No Exam Const: General: cooperative, healthy appearing, comfortable, no acute distress,
[2020-05-24] MEDS: HYDROcodone/acetaminophen (*CRX) 5-325 MG TABLET 1 TAB PO (14:46)
[2020-05-24] MEDS: KETOROLAC 30 MG/ML VIAL (*BKC) IM (14:51)
[2020-05-24 14:53] VITALS: BP 146/95; PULSE 67; RESP 16; TEMP 36.4; O2SAT 99
[2020-05-24 15:45] VITALS: BP 150/92; PULSE 67; RESP 16; O2SAT 99
== END 2020-05-24 15:45 | disposition home or self-care (01) ==
PROVIDERS: Emergency Provider Emergency Medicine; PCP Family Medicine
DX: S16.1XXA Strain of muscle, fascia and tendon at neck level, initial encounter (principal); S29.019A Strain of muscle and tendon of unspecified wall of thorax, initial encounter; S09.90XA Unspecified injury of head, initial encounter; I10 Essential (primary) hypertension; Z87.442 Personal history of urinary calculi; W19.XXXA Unspecified fall, initial encounter
CPT/HCPCS: 70450; 72125; 72128; 72131; 96372; 99284; A9270; J1885

== ENCOUNTER 2020-05-28 00:54 | Outpatient (CLI) | payer OTHER, SELFPAY ==
[2020-05-28 18:51] LABS: SARS-CoV-2 RNA PCR Negative
== END 2020-05-28 00:55 | disposition home or self-care (01) ==
LOC: ANHCOVIDDT 00:54
PROVIDERS: PCP Family Medicine; Visit Provider Urology
DX: Z01.818 Encounter for other preprocedural examination (principal); Z20.828 Contact with and (suspected) exposure to other viral communicable diseases
CPT/HCPCS: 87635; C9803; U0003

== ENCOUNTER 2020-05-28 07:57 | Outpatient (CLI) | payer OTHER, SELFPAY ==
[2020-05-28 08:36] LABS: Partial Thromboplastin Time 26.2 SECONDS (22.3-36.8); Prothrombin Time 13.7 Seconds (11.1-14.7)
[2020-05-28 08:40] LABS: Anion Gap 6 mmol/L (8-16); Blood Urea Nitrogen 18 mg/dL (9-20); Calcium 9.7 mg/dL (8.4-10.2); Carbon Dioxide 36 mmol/L (22-30); Chloride 100 mmol/L (98-107); Estimated Glomerular Filt Rate > 60; Glucose 113 mg/dL (75-110); Potassium 3.8 mmol/L (3.4-5.0); Sodium 142 mmol/L (137-145)
== END 2020-05-28 07:58 | disposition home or self-care (01) ==
LOC: ANHSURGERY 07:59
PROVIDERS: Anesthesiology; PCP Family Medicine; Visit Provider Urology
DX: N20.0 Calculus of kidney (principal); Z01.818 Encounter for other preprocedural examination; I12.9 Hypertensive chronic kidney disease with stage 1 through stage 4 chronic kidney disease, or unspecified chronic kidney disease
CPT/HCPCS: 36415; 80048; 85610; 85730; 87086

== ENCOUNTER 2020-05-31 01:12 | Day surgery (SDC) | payer OTHER, SELFPAY ==
[2020-05-27 09:33] VITALS: BMI 28.4
[2020-05-31] VITALS (7 sets, daily range): BP systolic 128–139; BP diastolic 71–85; PULSE 68–78; RESP 11–18; TEMP 36.5–36.6; O2SAT 97–100; BMI 28.4
--- NOTE | ~2020-05-31 | XR_ITS ---
EXAMINATION: XR abdomen/kub 1V DATE: 05/31/2020 06:43 INDICATION: Lithotripsy TECHNIQUE: A supine view of the abdomen on 2 radiographs was obtained. COMPARISON: CT dated 05/24/2020 FINDINGS: 5 mm and 2 mm and 3 mm stones in the mid left kidney. 2 mm stone projecting over the mid right kidney . The larger stone persists at the lower pole of the right kidney may be obscured by superimposed sto ol in the colon. No stones seen along the course of ureters. Unchanged pattern of phleboliths in the pelvis. Postoperative change of bilateral inguinal hernia repairs. Normal bowel gas pattern. IMPRESSION: 1. Bilateral nephrolithiasis. Reviewed, dictated and finalized at location A. ARE SUPERVISOR
--- NOTE | 2020-05-31 07:03 | WPDANESEPPF ---
Anes - Initial Pre Proc Eval Procedure: Operation Date: 05/31/20 08:30 Proposed Procedures p Left Renal Extracorporeal Shock Wave Lithotripsy - Khoa Geronimo MD Date/Time: 05/31/20 07:03 Surgeon: Khoa Geronimo MD Pre Op Diagnosis: Left Renal Stone Patient Data Age: 60 Gender: M Height: 1.83 m Weight: 95 kg Allergies Allergy/AdvReac Type Severity Reaction Status Date / Time No Known Allergies Allergy Mild Verified 05/31/20 07:00 Home Medications Medication Instructions Recorded Confirmed Type quinapril-hydrochlorothiazide 1 tablet PO DAILY 03/14/20 05/31/20 History Patient hx anesthesia problems: none Family hx anesthesia problems: none PMFSH Past Medical History Medical History (Updated 05/29/20 @ 12:09 by MANJU Groves) Erectile dysfunction Essential (primary) hypertension Hypertension Nephrolithiasis Umbilical hernia without mention of obstruction or gangrene Surgical History Surgical History History of inguinal hernia repair, bilateral 1986 History of sinus surgery 1980s Family History Family History Mother Breast cancer Father Emphysema, unspecified Social History Social History Smoking status: Never smoker Second hand tobacco smoke exposure: No Alcohol intake: current Substance use: never Substance use type: does not use Living arrangements: alone Gender identity (if verbalized by the patient): Male Spiritual care concerns: No Anes - Eval Final PreProcedure Day of Procedure 05/31/20 07:03 Patient weight: overweight Heart: regular rate and rhythm Lungs: clear to auscultation and normal air movement Airway: Mallampati scale class II Neurological: alert and oriented Last oral intake: >/= 8 hours ASA classification: II Emergent: no Anesthetic plan: proceed Anesthesia type and monitoring: general LMA Informed Consent: The patient's anesthetic plan and its attendant risks and benefits were discussed with the patient/family/POA. Questions were solicited and answers provided to the satisfaction of the patient/family/POA.
--- NOTE | 2020-05-31 07:04 | WPDHPUPDATE1 ---
History and Physical Update Update Date/Time: 05/31/20 07:04 History and Physical has been reviewed, including an updated exam of the patient. There are NO changes in the patient's condition. Risks, benefits, and alternatives have been discussed and questions answered. Patient agrees to proceed with procedure. Proceed with Left renal ESWL
--- NOTE | 2020-05-31 07:07 | WPDHPUPDATE1 ---
History and Physical Update Update Date/Time: 05/31/20 07:07 History and Physical has been reviewed, including an updated exam of the patient. There are NO changes in the patient's condition. Risks, benefits, and alternatives have been discussed and questions answered. Patient agrees to proceed with procedure. Proceed with left renal eswl
[2020-05-31] MEDS: ceFAZolin 2 GM/D5W 50 ML 2 GM/50 ML BAG IVPB (08:51)
--- NOTE | 2020-05-31 09:22 | PM.PROC ---
Procedure Note - Detailed Date of procedure: 05/31/20 Pre-op diagnosis: Left Renal Stone Post-op diagnosis: same Procedure performed: ESWL of a 6 mm left renal calculus Description of procedure: Patient is taken the operative suite and correctly identified. Once anesthesia was obtained the stone was localized in both planes. Two thousand five hundred shocks were given to the stone. There appeared to be some fragmentation of it. He tolerated procedure well without any complications and was taken recovery room stable condition. He will follow up in about 10 days with a KUB. If develops any problems he will call us so we can deal with appropriately. Anesthesia: GLMA Surgeon: Khoa Geronimo MD Drains: No Packing: No Pathology: none sent Complications: No immediate complications Condition: stable Disposition: PACU
[2020-05-31] MEDS: LACTATED RINGERS 1,000 ML 30 ML IV CONT (09:35)
== END 2020-05-31 11:35 | disposition home or self-care (01) ==
PROVIDERS: PCP Family Medicine; Visit Provider Urology
PROC: (CPT 50590; principal; 2020-05-31 08:30)
DX: N20.0 Calculus of kidney (principal); I10 Essential (primary) hypertension
CPT/HCPCS: 50590; 36415; 74018; 80048; 85610; 85730; 87086; 87635; C9803; J0690; J1100; J2250; J2405; J2704; J3010; J7120; U0003

== ENCOUNTER → 2020-09-20 05:14 | Outpatient (CLI) | payer OTHER, SELFPAY ==
[2020-09-20 19:21] LABS: SARS-CoV-2 RNA PCR Negative
== END ==
PROVIDERS: PCP Family Medicine; Visit Provider Surgery
DX: Z01.812 Encounter for preprocedural laboratory examination (principal); Z20.822 Contact with and (suspected) exposure to COVID-19
CPT/HCPCS: C9803; U0003; U0005

== ENCOUNTER 2020-09-23 01:52 | Day surgery (SDC) | payer OTHER, SELFPAY ==
[2020-09-12 10:17] VITALS: BMI 28.2
[2020-09-23] VITALS (10 sets, daily range): BP systolic 127–151; BP diastolic 71–85; PULSE 58–91; RESP 13–18; TEMP 36.6–37.2; O2SAT 98–100; BMI 28.6
--- NOTE | 2020-09-23 13:03 | WPDANESEPPF ---
Anes - Initial Pre Proc Eval Procedure: Operation Date: 09/23/20 14:30 Proposed Procedures p Laparoscopic Umbilical Hernia Repair with Mesh - Tony Prince MD Date/Time: 09/23/20 13:03 Surgeon: Tony Prince MD Pre Op Diagnosis: umbilical hernia Patient Data Age: 60 Gender: M Height: 6 ft Weight: 95.8 kg Last Vital Signs Temp 99.0 F 09/23/20 12:53 Pulse 79 09/23/20 12:53 Resp 18 09/23/20 12:53 BP 151/85 H 09/23/20 12:53 Pulse Ox 98 09/23/20 12:53 Allergies Allergy/AdvReac Type Severity Reaction Status Date / Time No Known Allergies Allergy Mild Verified 09/23/20 12:49 Home Medications Medication Instructions Recorded Confirmed Type quinapril 20 1 tablet PO DAILY #90 tablet 09/05/20 09/23/20 Rx mg-hydrochlorothiazide 25 mg tablet Beet Root 1,200 mg PO DAILY 09/12/20 09/23/20 History apple cider vinegar 500 mg PO DAILY 09/12/20 09/23/20 History multivitamin with minerals [Men's 1 tablet PO DAILY 09/12/20 09/23/20 History One Daily] vitamin [id number] acid 1 tablet SUBLINGUAL EVERY OTHER DAY 09/12/20 09/23/20 History Patient hx anesthesia problems: none Family hx anesthesia problems: none PMFSH Past Medical History Medical History Erectile dysfunction Essential (primary) hypertension Hypertension Nephrolithiasis 03/2020, 05/2020 - s/p ESWL Umbilical hernia without mention of obstruction or gangrene Surgical History Surgical History History of inguinal hernia repair, bilateral 1986 History of sinus surgery 1980s Family History Family History Mother Breast cancer Father Emphysema, unspecified Social History Social History Smoking status: Never smoker Second hand tobacco smoke exposure: No Alcohol intake: current Substance use: never Substance use type: does not use Living arrangements: alone Gender identity (if verbalized by the patient): Male Spiritual care concerns: No Anes - Eval Final PreProcedure Day of Procedure 09/23/20 13:03 Patient weight: overweight Heart: regular rate and rhythm Lungs: clear to auscultation Airway: Mallampati scale class III Neurological: alert and oriented Last oral intake: >/= 8 hours ASA classification: II Emergent: no Anesthetic plan: proceed Anesthesia type and monitoring: general ETT and standard monitoring Informed Consent: The patient's anesthetic plan and its attendant risks and benefits were discussed with the patient/family/POA. Questions were solicited and answers provided to the satisfaction of the patient/family/POA.
[2020-09-23] MEDS: LACTATED RINGERS 1,000 ML 30 ML IV CONT ×2 (13:43→15:50)
[2020-09-23] MEDS: ACETAMINOPHEN 500 MG TABLET 1000 MG PO (13:44)
[2020-09-23] MEDS: KETOROLAC 15 MG/ML VIAL (*BKC) IV PUSH (13:44)
--- NOTE | 2020-09-23 14:15 | WPDHPUPDATE1 ---
History and Physical Update Update Date/Time: 09/23/20 14:15 History and Physical has been reviewed, including an updated exam of the patient. There are NO changes in the patient's condition. Risks, benefits, and alternatives have been discussed and questions answered. Patient agrees to proceed with procedure.
[2020-09-23] MEDS: ceFAZolin 2 GM/D5W 50 ML 2 GM/50 ML BAG IVPB (14:39)
[2020-09-23] MEDS: BUPIVACAINE/EPINEPHRINE 0.5% 30 ML VIAL 20 ML INFILTRATE (15:04)
--- NOTE | 2020-09-23 15:38 | PM.PROC ---
Procedure Note - Detailed Date of procedure: 09/23/20 Pre-op diagnosis: umbilical hernia Post-op diagnosis: same Procedure performed: Laparoscopic umbilical hernia repair with mesh Description of procedure: DESCRIPTION OF PROCEDURE: The patient was placed in the supine position on the operative table and after induction of adequate general endotracheal anesthesia by Fran Anesthesia, the entire abdomen was prepped and draped in usual sterile fashion and the head placed slightly up. An Ioban drape was used to prevent contact of the mesh with the skin during this clean case. Following this, local anesthetic was placed and a spot selected about two fingerbreadths below the costal margin on the left and a small incision made after instilling local anesthetic using 0.25% Marcaine with epinephrine. Following this, a Veress needle technique using the water drop test was completed. Using 2 towel clips on the skin, I carefully elevated the skin and then passed the Veress needle into the abdomen and we could see that the saline droped through the Veress needle easily. CO2 gas was connected and the abdomen was insufflated to 14 mm Hg pressure after starting out at around 9. Following this, 0 degree 5 mm laparoscope was placed inside a 5 mm trocar, which was carefully twisted into the abdomen without difficulty, seeing a open pneumoperitoneum as we entered. Thus, the trocar was removed, the sleeve confirmed to be nicely within the abdomen, and we carefully inspected the abdomen. Careful inspection of the abdomen revealed no inguinal hernias. A small defect in the umbilicus that was actually difficult to see initially, but after placing a 12 mm port in the left lower quadrant under direct vision with the laparoscope, we could see up into a 25 mm defect that had been measured then with an instrument with a known cm marker. There was no incarceration of any omentum or any other adhesions to the underside of the umbilicus. There was fat from the urachus coming up into the area which might inhibit the tacks that I was planning to place through the mesh; therefore, this was taken down with Bovie cautery. We had a little bleeding from this, and lost about 2 mL of blood. This was nicely cauterized and then moved out of the way. Following this, we carefully planned by measuring the defect. Our mesh, a circular 11 cm piece of Venta-lite piece of mesh was chosen, so that we would have 4 cm of overlap in all directions over the circular umbilical defect. Following this, the ventra-lite balloon hernia system mesh was rolled and this was inserted through the 12 mm port after rolling it to protect the absorbable covering on the downside of the mesh. A black silk suture was placed through the blue system a loop that is used to extract the tubing for the balloon positioning system such that I could grab this and pull it up through the umbilical area with the suture Passer. I used the suture passer after making a small opening with an 11 blade knife after placing local anesthetic directly in the center of the umbilicus. The suture passer was used to grasp this centering silk stitch on the piece of mesh, and this was pulled up, centering it. Then and insofar inflated the balloon system which brought the mesh up against the anterior abdominal wall centering it nicely with the center of the 11 centimeter piece of mesh over the center of the umbilicus. Two rows of tacks using the absorbable Tacker were completed circumferentially at the edge and then about a centimeter back from the edge. This seemed to give good security to the mesh completely covering the umbilical defect. Once this was completed, we carefully removed the tacker, snipped the tubing on the balloon system and removed this from the Abdomen via the left lower quadrant 12 millimeter port site. I then carefully placed one 0 Vicryl suture with the suture passer to close the fascia at the 12 mm port. Once this was remov
[2020-09-23] MEDS: fentaNYL CITRATE INJ (*CRX) 100 MCG/2 ML VIAL 25 MCG IV PUSH ×4 (16:18→16:54)
[2020-09-23] MEDS: oxyCODONE HCL (*CRX) 5 MG TAB IR PO (17:59)
== END 2020-09-23 18:25 | disposition home or self-care (01) ==
PROVIDERS: PCP Family Medicine; Visit Provider Surgery
PROC: (CPT 49652; principal; 2020-09-23 14:30)
DX: K42.9 Umbilical hernia without obstruction or gangrene (principal); I10 Essential (primary) hypertension
CPT/HCPCS: 49652; 36415; 86850; 86900; 86901; A9270; C1781; C9803; J0690; J1885; J2250; J2704; J3010; J7120; U0003; U0005

== ENCOUNTER 2021-03-18 17:09 | Inpatient (IN) | payer OTHER, SELFPAY ==
--- NOTE | ~2021-03-18 | US_ITS ---
EXAMINATION: US abdomen limited DATE: 03/24/2021 09:35 INDICATION: Abnormal liver function tests. TECHNIQUE: Multiple grayscale and Doppler ultrasound images of the abdomen were obtained. COMPARISON: Chest CT 03/20/2021 FINDINGS: The visualized portions of the head and body of the pancreas are normal. The liver is denae l without focal lesion. No liver surface nodularity. There is normal flow in main portal vein. The ga llbladder is normal in size. No gallstones or gallbladder wall thickening. There was no sonographic M urphy sign. The common duct is normal and measures 5 mm. IMPRESSION: 1. Normal right upper quadrant ultrasound. Reviewed, dictated and finalized at location A.
--- NOTE | ~2021-03-18 | XR_ITS ---
XR chest 1V portable DATE: 03/25/2021 05:40 INDICATION: Covid infection. Pneumonia. TECHNIQUE: Portable AP chest on 03/25/2021 at 0522 hours COMPARISON: Portable AP chest on 03/23/2021 at 1054 hours FINDINGS: Normal heart size. There is patchy infiltrate in the right mid and lower and left lower lung wilson primarily, mildly in creased on the right since 03/23/2021. No pleural effusion or pulmonary vascular congestion or pneumot horax. IMPRESSION: Bilateral pulmonary infiltrates, greater on the right, mildly increased on the right sinc e 04/09/2021 Reviewed, dictated and finalized at location A. IMPRESSION: Bilateral pulmonary infiltrates, greater on the right, mildly incre ased on the right since 04/09/2021
--- NOTE | ~2021-03-18 | CT_ITS ---
EXAMINATION: CTA chest PE protocol DATE: 03/20/2021 14:01 INDICATION: Covid 19 infection. Shortness of breath. Fever. TECHNIQUE: Computed tomography angiography (CTA) of the chest was performed with 100 mL Omnipaque-350 intravenous contrast timed to evaluate the pulmonary arteries. Coronal maximum intensity projection 3D-reconstructions were created by the technologist. Automated exposure control and iterative reconst ruction technique were employed. Exam dose: 552.12 mGy-cm total exam DLP. COMPARISON: 03/20/2021 portable AP chest FINDINGS: There is diagnostic contrast enhancement of the pulmonary arteries and no evidence of pulmo nary embolism. No thoracic aortic aneurysm or dissection. No hilar or mediastinal mass lesion or lymphadenopathy. Normal heart size. No pericardial or pleural effusion. Normal morphology of the adrenal glands. Included upper abdominal structures are unremarkable. There are extensive patchy groundglass infiltrates scattered throughout all lobes of both lungs with peripheral predominance, likely due to Covid 19 pneumonia. Diffuse idiopathic skeletal hyperostosis of the thoracic spine. 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 No suspicious osteolytic or osteoblastic lesions are noted. IMPRESSION: Bilateral pulmonary infiltrates likely secondary to Covid 19 pneumonia No evidence of pulmonary embolism Reviewed, dictated and finalized at Location A. Reviewed, dictated and finalized at location B. IMPRESSION: Bilateral pulmonary infiltrates likely secondary to Covid 19 pneum onia No evidence of pulmonary embolism
--- NOTE | ~2021-03-18 | XR_ITS ---
EXAMINATION: XR chest 1V portable EXAM DATE: 03/20/2021 08:52 INDICATION: Shortness of breath. COVID pneumonia. TECHNIQUE: Portable AP frontal chest x-ray was obtained. Comparison is made to prior examination from 03/18/2021. FINDINGS: Moderate amount of right-sided, smaller amount of left-sided ill-defined COVID pneumonia. D ifficult to appreciate any significant interval change. No pneumothorax or pleural effusion. Cardiome diastinal silhouette is normal. There are no osseous abnormalities identified. IMPRESSION: Moderate right, small to moderate left COVID pneumonia unchanged. Reviewed, dictated and finalized at location A.
--- NOTE | ~2021-03-18 | XR_ITS ---
XR chest 1V portable 03/23/2021 10:59 Indication: Pneumonia Procedure: AP portable chest Comparison: Comparison to multiple prior studies sequentially, with oldest reviewed study dated 03/18. Findings: Stable patchy bilateral airspace disease, compatible with pneumonia. No significant effusio n or pneumothorax. No acute osseous abnormality. Impression: 1: Stable patchy bilateral airspace disease, compatible with pneumonia. Reviewed, dictated and finalized at location A. Impression: 1: Stable patchy bilateral airspace disease, compatible with pneumonia.
--- NOTE | ~2021-03-18 | XR_ITS ---
XR chest 1V portable 03/22/2021 09:22 Indication: Pneumonia. Procedure: AP portable chest Comparison: Comparison to multiple prior studies sequentially, with oldest reviewed study dated 03/18. Findings: Stable patchy bilateral airspace disease, compatible with pneumonia. No significant effusio n or pneumothorax. No acute osseous abnormality. Impression: 1: Stable patchy bilateral airspace disease, compatible with pneumonia. Reviewed, dictated and finalized at location A. Impression: 1: Stable patchy bilateral airspace disease, compatible with pneumonia.
--- NOTE | ~2021-03-18 | XR_ITS ---
EXAMINATION: XR chest 1V portable INDICATION: Shortness of breath and cough, COVID 19 positive TECHNIQUE: Portable AP chest at 1738 hours COMPARISON: None available FINDINGS: There are patchy opacities throughout all lung zones, mild in the left mid and upper lung z ones. No pleural effusion or pneumothorax is identified. The cardiomediastinal silhouette is normal. IMPRESSION: 1. Diffuse lung disease, likely COVID 19 pneumonia. Reviewed, dictated and finalized at location A.
[2021-03-18 17:12] VITALS: BP 113/61; PULSE 91; RESP 20; TEMP 37.6; O2SAT 97
--- NOTE | 2021-03-18 17:25 | ECG_ITS ---
Measurements Intervals [place] Rate: 102 P: 25 NV: 135 QRS: 3 QRSD: 97 T: 30 QT: 326 QTc: 425 Interpretive Statements SINUS TACHYCARDIA EARLY PRECORDIAL R/S TRANSITION VOLTAGE CRITERIA FOR LVH BORDERLINE ST-T WAVE ABNORMALITY- DIFFUSE LEADS BORDERLINE ECG Electronically Signed On 03-19-2021 6:59:38 CDT by Merrill Lindsey D.O.
[2021-03-18 17:36] LABS: Basophils Percent Auto 0.2 % (0.2-1.2); Eosinophils Percent Auto 0.2 % (0-4.4); Hemoglobin 14.6 g/dL (14.0-18.0); Immature Granulocyte Absolute 0.03 K/mm3 (0.00-0.031); Immature Granulocyte Percent A 0.6 % (0-0.5); Lymphocytes Absolute Auto 0.69 K/mm3 (0.9-3.2); Lymphocytes Percent Auto 13.3 % (18.3-44.2); Mean Corpuscular Hemoglobin 29.4 pg (26-34); Mean Corpuscular Volume 86.7 fl (80-100); Mean Platelet Volume 8.8 fl (7.4-10.4); Monocytes Absolute Auto 0.4 K/mm3 (0.1-0.6); Monocytes Percent Auto 7.9 % (2.6-8.5); Neutrophils Percent Auto 77.8 % (45.5-73.1); Platelet Count Result 151 k/mm3 (150-375); Red Blood Count 4.96 M/mm3 (4.6-6.20); Red Cell Distribution Width 13.7 % (11.5-14.5); White Blood Count 5.2 K/mm3 (4.5-10.0)
[2021-03-18 17:45] LABS: Anion Gap 10 mmol/L (8-16); Blood Urea Nitrogen 25 mg/dL (9-20); Calcium 8.7 mg/dL (8.4-10.2); Carbon Dioxide 29 mmol/L (22-30); Chloride 99 mmol/L (98-107); Estimated CRCL calculation 62 ml/min; Estimated Glomerular Filt Rate > 60; Glucose 104 mg/dL (65-110); Potassium 3.4 mmol/L (3.4-5.0); Sodium 138 mmol/L (137-145)
[2021-03-18 21:48] VITALS: BP 138/71; PULSE 101; RESP 28; TEMP 39.4; O2SAT 94
[2021-03-18 21:51] VITALS: O2SAT 94
--- NOTE | 2021-03-18 21:53 | ED.SOB ---
HPI - SOB/Dyspnea General Chief Complaint: Shortness of Breath/Dyspnea Stated Complaint: sob, covid+ Time Seen by Provider: 03/18/21 21:51 Source: patient Mode of arrival: ambulatory Limitations: no limitations History of Present Illness HPI Narrative: Patient is 61 years old white male presented to the ED with increased shortness of breath and fever and chills over the last few days. Patient tested positive for COVID-19 on March 14. Patient is unvaccinated. History of hypertension, alcohol abuse, does not smoke., Related Data Home Medications Medication Instructions Recorded Confirmed Beet Root 1,200 mg PO DAILY 09/12/20 09/23/20 apple cider vinegar 500 mg PO DAILY 09/12/20 09/23/20 multivitamin with minerals [Men's 1 tablet PO DAILY 09/12/20 09/23/20 One Daily] vitamin C51-laeal acid 1 tablet SUBLINGUAL EVERY OTHER DAY 09/12/20 09/23/20 Allergies Allergy/AdvReac Type Severity Reaction Status Date / Time No Known Allergies Allergy Mild Verified 03/18/21 21:54 Review of Systems Review of Systems: CONSTITUTIONAL: Denies fever, chills, or sweats. EYES: Denies visual changes, redness, or discharge. ENT: Denies rhinorrhea, congestion, sore throat, or otalgia. CARDIOVASCULAR: Denies chest pain, palpitations, or edema. RESPIRATORY: Shortness of breath and coughing GASTROINTESTINAL: Denies abdominal pain, nausea, vomiting, or diarrhea. GENITOURINARY: Denies dysuria or hematuria. SKIN: Denies rash or itching. MUSCULOSKELETAL: Denies back pain, joint pain, or myalgia. NEUROLOGIC: Denies headache, numbness, or weakness. PSYCHIATRIC: Denies anxiety or depression. FOR[facility]LY [facility] Past Medical History Medical History Erectile dysfunction Essential (primary) hypertension Hypertension Nephrolithiasis 03/2020, 05/2020 - s/p ESWL Umbilical hernia without mention of obstruction or gangrene Surgical History Surgical History H/O umbilical hernia repair History of inguinal hernia repair, bilateral 1986 History of sinus surgery 1980s Family History Family History Mother Breast cancer Father Emphysema, unspecified Social History Social History Smoking status: Never smoker Second hand tobacco smoke exposure: No Alcohol intake: current Alcohol use details: occasional glass/ 2 sips of wine, maybe on a holiday Substance use: never Substance use type: does not use Gender identity (if verbalized by the patient): Male Spiritual care concerns: No Exam Narrative: General appearance: Well-developed, well-nourished Skin: Normal color Head: Normocephalic, nontraumatic Eyes: Clear conjunctiva ENT: Oropharynx normal, ears normal, nose normal Neck: Supple, nontender Chest and respiratory: Airway patent, no respiratory distress, no accessory muscle use, few basal rales bilaterally, intermittent coughing Heart: Regular rate/rhythm Abdomen: Soft, nontender, no organomegaly, quiet bowel sounds Vascular: Normal peripheral pulses, normal capillary refill. Musculoskeletal: Normal range of motion, nontender back Neurologic: Alert and oriented ?3, [employer] is normal as tested, no gross motor deficit Course Course Emergency Course: Stable Vital Signs Vital signs: Vital Signs Temperature 37.6 C H 03/18/21 17:12 Pulse Rate 91 03/18/21 17:12 Respiratory Rate 20 03/18/21 17:12 Blood Pressure 113/61 03/18/21 17:12 Pulse Oximetry 97 03/18/21 17:12 Temperature 39.4 C H 03/18/21 21:48 Pulse Rate 99 03/18/21 23:20 Re
[2021-03-18] MEDS: IBUPROFEN 600 MG TABLET PO (22:17)
[2021-03-18] MEDS: ACETAMINOPHEN 325 MG TABLET 650 MG PO (22:17)
[2021-03-18 22:25] LABS: Alveolar/Arterial O2 Gradient 56.7 mmHg; Base Excess ABG 2.9 mEq/l (+/-2.0); Fractional Inspired Oxygen 21 %; HCO3 ABG 25.8 mEq/l (22.0-26.0); Oxygen Content ABG 17.4 %vol (16.0-22.0); Oxygen Saturation ABG 89.9 % (95.0-100.0); Oxyhemoglobin 86.8 % THb (90.0-100.0); PCO2 ABG 34.2 mmHg (35.0-45.0); PO2 ABG 52.1 mmHg (80.0-100.0); PO2 FiO2 Ratio Arterial Blood 2.48 %; Total Hemoglobin 14.3 g/dL (12.0-18.0); pH ABG 7.495 (7.350-7.450)
[2021-03-18 22:27] LABS: Device ROOM AIR; Modified Allen's Test Pass; Site Drawn LEFT RADIAL
[2021-03-18 23:00] VITALS: BP 124/71; PULSE 100; RESP 26; O2SAT 93
[2021-03-18 23:20] VITALS: BP 113/67; PULSE 99; RESP 20; O2SAT 93
[2021-03-18 23:56] LABS: Alanine Aminotransferase 24 U/L (4-50); Estimated CRCL calculation 62 ml/min; Estimated Glomerular Filt Rate > 60
[2021-03-18 23:58] LABS: INR 0.9; Prothrombin Time 12.4 Seconds (11.1-14.7)
[2021-03-19] VITALS (10 sets, daily range): BP systolic 100–125; BP diastolic 53–65; PULSE 79–94; RESP 18–20; TEMP 36.8–37.7; O2SAT 91–98; BMI 28.0
[2021-03-19] MEDS: REMDESIVIR 200 MG/NS 250 ML 200 MG/250 ML BAG 250 MG IVPB (00:35)
--- NOTE | 2021-03-19 00:53 | ADMGEN ---
This patient, Bryan Yang, was admitted to [facility] Surg Room 326-01. Patient/family oriented to hospital policies and general routines including ID bracelet, bed and alarms, visiting hours, pain management, procedures, bathroom and other care routines, personal items, smoking policy, room service/diet, and visiting hours. Information on how to activate the Rapid Response Team has been discussed. Patient/Family are encouraged to report perceived risks to care and to ask questions if they do not understand what they are told or what they should do.
[2021-03-19 00:56] LABS: Alanine Aminotransferase 23 U/L (4-50); Estimated CRCL calculation 62 ml/min; Estimated Glomerular Filt Rate > 60
[2021-03-19 00:57] LABS: INR 0.9; Prothrombin Time 12.5 Seconds (11.1-14.7)
--- NOTE | 2021-03-19 02:59 | PM.IMHP ---
H&P: HPI History of Present Illness Date/Time: 03/19/21 02:59 Chief Complaint: Shortness of breath Narrative: This is a 61-year-old male with past medical history significant for hypertension. Patient presented to the emergency room after he tested positive for COVID 19 4 days prior. Patient was having chills ,rigors , fevers, shortness of breath ,general malaise, muscle aches and pains, decreased appetite, no nausea ,no vomiting ,no diarrhea. Upon arrival to emergency room patient was found to be saturating in the 89% to 92% however at the time of my visit patient was on room air and saturating in the high 90s. Preliminary workup was significant for chest x-ray with diffuse infiltrates. Decision has been made to admit the patient for further management treatment and evaluation. Review of Systems Review of Systems: Tested positive for COVID 19 4 days ago has been having worsening muscle aches and pains generalized malaise fevers chills rigors shortness of breath decreased appetite Constitutional: Constitutional: Reports chills, Reports fatigue, Reports fever(s), Reports lethargy, Reports malaise and Reports poor appetite Eyes: Eyes: Denies change in vision ENT: Reports system reviewed and no additional complaints, except as documented, Denies dysphagia, Denies nasal congestion, Denies nasal discharge, Denies nasal obstruction and Denies odynophagia Cardiovascular: Cardiovascular: Denies chest pain, Denies irregular heart rhythm, Denies lightheadedness, Denies radiating jaw, neck or arm pain, Denies palpitations, Reports dyspnea and Denies orthopnea Respiratory: Respiratory: Reports cough Gastrointestinal: Gastrointestinal: Denies dyspepsia, Denies heartburn, Denies diarrhea, Denies nausea and Denies vomiting Genitourinary: Genitourinary: Reports no additional male genitourinary complaints Musculoskeletal: Musculoskeletal: Reports no additional musculoskeletal complaints Integumentary/Breasts: Skin/Breast: Reports system reviewed and no additional complaints, except as docu Neurologic: Reports system reviewed and no additional complaints, except as documented Psychiatric: Psychiatric: Reports no additional psychiatric complaints Endocrine: Endocrine: Reports no additional endocrine complaints Hematologic/Lymphatic: Hematologic/Lymphatic: Reports no additional hematologic/lymphatic complaints Allergic/Immunologic: Allergic/Immunologic: Reports no additional allergic/immunologic complaints PMFSH Past Medical History Medical History Erectile dysfunction Essential (primary) hypertension Hypertension Nephrolithiasis 03/2020, 05/2020 - s/p ESWL Umbilical hernia without mention of obstruction or gangrene Surgical History Surgical History H/O umbilical hernia repair History of inguinal hernia repair, bilateral 1986 History of sinus surgery 1980s Family History Family History Mother Breast cancer Father Emphysema, unspecified Social History Social History Smoking status: Never smoker Second hand tobacco smoke exposure: No Alcohol intake: current Drinks per week: 1 Alcohol use details: occasional glass/ 2 sips of wine, maybe on a holiday Substance use: never Substance use type: does not use Gender identity (if verbalized by the patient): Male Spiritual care concerns: No Meds Home Medications and Allergies Home Medications Medication Instructions Recorded Confirmed Type quinapril 20 1 tablet PO DAILY #90 tablet 09/05/20 03/19/21 Rx mg-hydrochlorothiazide 25 mg tablet Beet Root 1,200 mg PO DAILY 09/12/20 03/19/21 History apple cider vinegar 500 mg PO DAILY 09/12/20 03/19/21 History multivitamin with minerals [Men's 1 tablet PO DAILY 09/12/20 03/19/21 History One Daily] vitamin
[2021-03-19] MEDS: SODIUM CHLORIDE 0.9% IV 250 ML 30 ML IV CONT (03:58)
[2021-03-19] MEDS: lisinopriL 20 MG TABLET PO (08:50)
[2021-03-19] MEDS: hydroCHLOROthiazide 25 MG TABLET PO (08:50)
[2021-03-19] MEDS: CYANOCOBALAMIN 1,000 MCG TABLET 1000 MCG PO (08:50)
[2021-03-19] MEDS: THERAPEUTIC MULTIVITAMINS/MINERALS TAB (*BKC) 1 TABLET PO (08:50)
[2021-03-19] MEDS: ENOXAPARIN 40 MG/0.4 ML SYRINGE SUB-Q ×2 (08:50→21:01)
[2021-03-19] MEDS: FOLIC ACID 0.4 MG TABLET PO (08:50)
[2021-03-19] MEDS: DEXAMETHASONE 2 MG TABLET 6 MG PO (08:51)
--- NOTE | 2021-03-19 15:46 | PM.IMPN ---
Progress Note: A&P Assessment and Plan (1) 2019 novel coronavirus-infected pneumonia (NCIP): Code(s): U07.1 - COVID-19; J12.82 - Pneumonia due to coronavirus disease 2019 Status: Acute Assessment and Plan: Patient has tested positive for COVID and has been requiring oxygen but feeling better -chest x-ray confirms pneumonia -continue remdesivir, Decadron and Lovenox -will stop azithromycin -plasma ordered -wean oxygen as tolerated, continue supportive care (2) Acute respiratory failure with hypoxia: Code(s): J96.01 - Acute respiratory failure with hypoxia Status: Acute Assessment and Plan: Secondary to above -continue oxygen as needed to keep sats greater than 90 (3) Essential (primary) hypertension: Code(s): I10 - Essential (primary) hypertension Status: Acute Assessment and Plan: Last blood pressure is 110/53 -continue lisinopril and hydrochlorothiazide Time Spent With Patient Time with patient: 25 - 35 minutes Subjective Date/time seen: 03/19/21 15:46 Interval history: Pt is a 61 y/o male here for COVID. Patient was seen today and is feeling okay. He says he does not have much shortness of breath at rest and having no shortness of breath with walking. He has been utilizing oxygen and feeling much better. He does have a cough which worsens when he takes big breaths. He says he drinks a few glasses of alcohol a year and does not routinely drink alcohol. He is not vaccinated. He denies chest pain, nausea, vomiting, fevers, chills, abdominal pain, diarrhea or constipation. No history of DVTs or PEs Review of Systems Review of Systems: All systems reviewed & are unremarkable except as noted in HPI and below Exam Narrative: General: Well developed well nourished patient in NAD HEENT: normocephalic Neck: supple Neuro: Alert and oriented x4 CV:RRR Resp: Crackles, bilaterally. No wheezing or rhonchi Abd: Soft, non distended. No pain to palpation. Positive bowel sounds Extremities: No swelling, erythema, or pain to palpation. Objective Data Vital Signs Vital Signs: Vital Signs - 24 hr 03/18/21 17:12 03/18/21 21:48 03/18/21 21:51 Temperature 99.7 F H 102.9 F H Pulse Rate 91 101 H Respiratory Rate 20 28 H Blood Pressure 113/61 138/71 Pulse Oximetry 97 94 94 03/18/21 23:00 03/18/21 23:20 03/19/21 00:55 Temperature 98.2 F Pulse Rate 100 99 81 Respiratory Rate 26 H 20 20 Blood Pressure 124/71 113/67 110/56 L Pulse Oximetry 93 93 91 03/19/21 04:00 03/19/21 08:00 03/19/21 08:22 Temperature 98.2 F 98.8 F Pulse Rate 82 91 Respiratory Rate 20 18 Blood Pressure 125/63 115/65 Pulse Oximetry 91 93 93 03/19/21 08:50 03/19/21 08:55 03/19/21 12:00 Temperature 99.4 F Pulse Rate 88 Respiratory Rate 18 Blood Pressure 110/53 L Pulse Oximetry 98 93 95 Intake/Output Intake/Output: Intake & Output 03/16/21 03/17/21 03/18/21 03/19/21 23:59 23:59 23:59 23:59 Intake Total 270 Output Total 100 Balance 170 Meds/Results Medications: Active Medications Generic Name Dose Route Start Last Admin Trade Name Samirq PRN Reason Stop Dose Admin Cyanocobalamin 1,000 mcg 03/19/21 09:00 03/19/21 08:50 Cyanocobalamin 1,000 Mcg Tablet PO 1,000 mcg Q48H URI Administration Dexamethasone 6 mg 03/19/21 08:00 03/19/21 08:51 Dexamethasone 2 Mg Tablet PO 03/28/21 08:01 6 mg DAILY@0800 URI Administration Enoxaparin Sodium 40 mg 03/19/21 21:00 Enoxaparin 40 Mg/0.4 Ml Syringe SUB-Q Q12HR URI Folic Acid 0.4 mg 03/19/21 08:00 03/19/21 08:50 Folic Acid 0.4 Mg Tablet PO 0.4 mg Q48H URI Administration Hydrochlorothiazide 25 mg 03/19/21 09:00 03/19/21 08:50 Hydrochlorothiazide 25 Mg Tablet PO 25 mg QAM URI Administration Remdesivir 100 mg in 250 mls @ 250 mls/hr 03/19/21 22:00 IVPB 03/23/21 21:59 Q24H URI Acetaminophen 650 mg in 65 mls @
[2021-03-19] MEDS: REMDESIVIR 100 MG/NS 250 ML 100 MG/250 ML BAG 250 MG IVPB (21:00)
[2021-03-20] VITALS (13 sets, daily range): BP systolic 99–126; BP diastolic 56–65; PULSE 65–76; RESP 14–20; TEMP 36.5–37.9; O2SAT 88–98
[2021-03-20] MEDS: BENZONATATE 100 MG CAPSULE 200 MG PO ×3 (04:53→18:20)
[2021-03-20 08:14] LABS: Hematocrit 39.4 % (42.0-52.0); Hemoglobin 13.4 g/dL (14.0-18.0)
[2021-03-20 08:20] LABS: Potassium 3.3 mmol/L (3.4-5.0)
[2021-03-20 09:23] LABS: Alanine Aminotransferase 30 U/L (4-50); Albumin Level 3.6 g/dL (3.5-5.1); Alkaline Phosphatase 45 U/L (38-126); Anion Gap 10 mmol/L (8-16); Aspartate Amino Transferase 63 U/L (17-59); Bilirubin,Total 0.9 mg/dL (0.2-1.3); Blood Urea Nitrogen 28 mg/dL (9-20); CRP 7.1 mg/dL (<1.0); Calcium 8.5 mg/dL (8.4-10.2); Carbon Dioxide 29 mmol/L (22-30); Chloride 99 mmol/L (98-107); Estimated CRCL calculation 73 ml/min; Estimated Glomerular Filt Rate > 60; Glucose 124 mg/dL (65-110); Sodium 138 mmol/L (137-145)
[2021-03-20] MEDS: DEXAMETHASONE 2 MG TABLET 6 MG PO (10:26)
[2021-03-20] MEDS: ENOXAPARIN 40 MG/0.4 ML SYRINGE SUB-Q (10:27)
[2021-03-20] MEDS: lisinopriL 20 MG TABLET PO (10:27)
[2021-03-20] MEDS: THERAPEUTIC MULTIVITAMINS/MINERALS TAB (*BKC) 1 TABLET PO (10:27)
[2021-03-20] MEDS: hydroCHLOROthiazide 25 MG TABLET PO (10:27)
--- NOTE | 2021-03-20 11:23 | PM.IMPN ---
Progress Note: A&P Assessment and Plan (1) 2019 novel coronavirus-infected pneumonia (NCIP): Code(s): U07.1 - COVID-19; J12.82 - Pneumonia due to coronavirus disease 2019 Status: Acute Assessment and Plan: Patient has tested positive for COVID and has been requiring oxygen but feeling better -repeat chest x-ray shows stable pneumonia -patient is now up to 6 L of oxygen -continue remdesivir, Decadron and Lovenox -I spoke to him about baricitinib and he wants to research it before making this decision. I have provided him with a handout for this -will stop azithromycin -plasma ordered -wean oxygen as tolerated, continue supportive care (2) Acute respiratory failure with hypoxia: Code(s): J96.01 - Acute respiratory failure with hypoxia Status: Acute Assessment and Plan: Secondary to above -continue oxygen as needed to keep sats greater than 90 (3) Essential (primary) hypertension: Code(s): I10 - Essential (primary) hypertension Status: Acute Assessment and Plan: Last blood pressure is 111/59 -continue lisinopril and hydrochlorothiazide Subjective Date/time seen: 03/20/21 11:23 Interval history: Pt is a 61 y/o male here for COVID. Patient was seen today and states that he is feeling better today than he did yesterday. He had a lot of trouble sleeping overnight and kept coughing and feeling short of breath when he was tossing and turning. Currently he does not feel short of breath and denies dyspnea on exertion. He is eating and drinking well. No nausea, vomiting, fevers, chills, diarrhea or constipation. I spoke to him about baricitinib and he states he wants to research it a bit before making that decision. I have provided him a patient handout Exam Narrative: General: Well developed well nourished patient in NAD HEENT: normocephalic Neck: supple Neuro: Alert and oriented x4 CV:RRR Resp: Crackles, bilaterally. No wheezing or rhonchi Abd: Soft, non distended. No pain to palpation. Positive bowel sounds Extremities: No swelling, erythema, or pain to palpation. Objective Data Vital Signs Vital Signs: Vital Signs - 24 hr 03/19/21 12:00 03/19/21 16:00 03/19/21 20:00 Temperature 99.4 F 99.5 F 99.3 F Pulse Rate 88 93 94 Respiratory Rate 18 18 18 Blood Pressure 110/53 L 102/55 L 100/57 L Pulse Oximetry 95 97 95 03/19/21 23:51 03/20/21 04:00 03/20/21 04:43 Temperature 99.9 F H 98.3 F Pulse Rate 79 73 Respiratory Rate 18 18 Blood Pressure 103/57 L 126/60 Pulse Oximetry 92 96 92 03/20/21 04:58 03/20/21 04:59 03/20/21 08:00 Temperature 98.3 F Pulse Rate 72 Respiratory Rate 18 Blood Pressure 111/59 L Pulse Oximetry 88 L 92 96 Intake/Output Intake/Output: Intake & Output 03/17/21 03/18/21 03/19/21 03/20/21 23:59 23:59 23:59 23:59 Intake Total 1740 750 Output Total 100 Balance 1640 750 Meds/Results Medications: Active Medications Generic Name Dose Route Start Last Admin Trade Name Freq PRN Reason Stop Dose Admin Benzonatate 200 mg 03/20/21 04:46 03/20/21 10:27 Benzonatate 100 Mg Capsule PO 200 mg Q4HR PRN Administration Cough Cyanocobalamin 1,000 mcg 03/19/21 09:00 03/19/21 08:50 Cyanocobalamin 1,000 Mcg Tablet PO 1,000 mcg Q48H URI Administration Dexamethasone 6 mg 03/19/21 08:00 03/20/21 10:26 Dexamethasone 2 Mg Tablet PO 03/28/21 08:01 6 mg DAILY@0800 URI Administration Enoxaparin Sodium 40 mg 03/20/21 09:00 03/20/21 10:27 Enoxaparin 40 Mg/0.4 Ml Syringe SUB-Q 40 mg DAILY URI Administration Folic Acid 0.4 mg 03/19/21 08:00 03/19/21 08:50 Folic Acid 0.4 Mg Tablet PO 0.4 mg Q48H URI Administration Hydrochlorothiazide 25 mg 03/19/21 09:00 03/20/21 10:27 Hydrochlorothiazide 25 Mg Tablet PO 25 mg QAM URI Administration Remdesivir 100 mg in 250 mls @ 250 mls/hr 03/19/21 22:00 03/19/21 22:00 IVPB 03/23/21
[2021-03-20] MEDS: TUBING, BLOOD PLUM PUMP TUBING 1 EACH XX (14:59)
[2021-03-20] MEDS: SODIUM CHLORIDE 0.9% IV 250 ML 30 ML (14:59)
[2021-03-20] MEDS: POTASSIUM CHLORIDE 20 MEQ TABLET 40 MEQ PO (16:07)
[2021-03-20] MEDS: REMDESIVIR 100 MG/NS 250 ML 100 MG/250 ML BAG 250 MG IVPB (21:50)
[2021-03-21] VITALS (7 sets, daily range): BP systolic 107–123; BP diastolic 53–65; PULSE 62–76; RESP 18–21; TEMP 36.2–37.1; O2SAT 90–93
[2021-03-21] MEDS: BENZONATATE 100 MG CAPSULE 200 MG PO ×2 (05:04→09:15)
[2021-03-21 07:12] LABS: Hematocrit 38.3 % (42.0-52.0); Hemoglobin 12.9 g/dL (14.0-18.0); Mean Corpuscular HGB Conc 33.7 g/dl (32-36); Mean Corpuscular Hemoglobin 28.7 pg (26-34); Mean Corpuscular Volume 85.1 fl (80-100); Mean Platelet Volume 9.5 fl (7.4-10.4); Platelet Count Result 229 k/mm3 (150-375); Red Cell Distribution Width 13.4 % (11.5-14.5); White Blood Count 7.7 K/mm3 (4.5-10.0)
[2021-03-21 07:25] LABS: Alanine Aminotransferase 38 U/L (4-50); Albumin Level 3.6 g/dL (3.5-5.1); Alkaline Phosphatase 40 U/L (38-126); Anion Gap 7 mmol/L (8-16); Aspartate Amino Transferase 69 U/L (17-59); Bilirubin,Total 0.8 mg/dL (0.2-1.3); Blood Urea Nitrogen 29 mg/dL (9-20); Calcium 8.6 mg/dL (8.4-10.2); Carbon Dioxide 29 mmol/L (22-30); Chloride 101 mmol/L (98-107); Estimated CRCL calculation 81 ml/min; Estimated Glomerular Filt Rate > 60; Glucose 128 mg/dL (65-110); Potassium 3.7 mmol/L (3.4-5.0); Sodium 137 mmol/L (137-145)
[2021-03-21 07:39] LABS: Prothrombin Time 13.1 Seconds (11.1-14.7)
[2021-03-21 07:42] LABS: D Dimer 0.61 ug/mL (<0.48)
[2021-03-21] MEDS: ENOXAPARIN 40 MG/0.4 ML SYRINGE SUB-Q (09:15)
[2021-03-21] MEDS: lisinopriL 20 MG TABLET PO (09:16)
[2021-03-21] MEDS: hydroCHLOROthiazide 25 MG TABLET PO (09:16)
[2021-03-21] MEDS: FOLIC ACID 0.4 MG TABLET PO (09:16)
[2021-03-21] MEDS: THERAPEUTIC MULTIVITAMINS/MINERALS TAB (*BKC) 1 TABLET PO (09:16)
[2021-03-21] MEDS: DEXAMETHASONE 2 MG TABLET 6 MG PO (09:17)
[2021-03-21] MEDS: CYANOCOBALAMIN 1,000 MCG TABLET 1000 MCG PO (09:17)
--- NOTE | 2021-03-21 15:36 | PM.IMPN ---
Progress Note: A&P Assessment and Plan (1) 2019 novel coronavirus-infected pneumonia (NCIP): Code(s): U07.1 - COVID-19; J12.82 - Pneumonia due to coronavirus disease 2019 Status: Acute Assessment and Plan: Patient has tested positive for COVID and has been requiring oxygen but feeling better -CTA shows no PE but it does show bilateral COVID pneumonia -patient has been weaned down to 5 L of oxygen today -continue remdesivir, Decadron and Lovenox -I spoke to him about baricitinib yesterday. He does not want to move for with this which I think is a reasonable plan since he has improved today -plasma given 03/20/21 -wean oxygen as tolerated, continue supportive care (2) Acute respiratory failure with hypoxia: Code(s): J96.01 - Acute respiratory failure with hypoxia Status: Acute Assessment and Plan: Secondary to above -continue oxygen as needed to keep sats greater than 90 (3) Essential (primary) hypertension: Code(s): I10 - Essential (primary) hypertension Status: Acute Assessment and Plan: Last blood pressure is 118/53 -continue lisinopril and hydrochlorothiazide Subjective Date/time seen: 03/21/21 15:36 Interval history: Pt is a 61 y/o male here for COVID. Patient was seen today and is feeling better today than he did yesterday. He is barely coughing and is able to walk around the room without significant shortness of breath. He has been using his spirometer. He is eating and drinking well and has no chest pain, nausea or vomiting. I spoke with his family member Gladis (?) On the phone at bedside about the plan of care. Patient is improving and does not feel as though he needs baricitinib which I agree. We can hold off and we can discuss again if he worsens. Exam Narrative: General: Well developed well nourished patient in NAD HEENT: normocephalic Neck: supple Neuro: Alert and oriented x4 CV:RRR Resp: Crackles, bilaterally. No wheezing or rhonchi. Able to take deeper breaths today Abd: Soft, non distended. No pain to palpation. Positive bowel sounds Extremities: No swelling, erythema, or pain to palpation. Objective Data Vital Signs Vital Signs: Vital Signs - 24 hr 03/20/21 16:00 03/20/21 16:02 03/20/21 17:23 Temperature 97.7 F 99.7 F H 99.6 F Pulse Rate 71 65 68 Respiratory Rate 18 16 14 Blood Pressure 109/60 109/57 L 107/65 Pulse Oximetry 94 98 98 03/20/21 17:30 03/20/21 20:00 03/21/21 00:00 Temperature 97.9 F 97.6 F Pulse Rate 70 70 Respiratory Rate 20 20 Blood Pressure 109/56 L 117/55 L Pulse Oximetry 95 93 93 03/21/21 04:00 03/21/21 08:00 03/21/21 12:00 Temperature 98.0 F 97.2 F L 97.6 F Pulse Rate 68 62 73 Respiratory Rate 18 21 H 20 Blood Pressure 117/59 L 123/58 L 118/53 L Pulse Oximetry 93 90 92 Intake/Output Intake/Output: Intake & Output 03/18/21 03/19/21 03/20/21 03/21/21 23:59 23:59 23:59 23:59 Intake Total 1989 2330 990 Output Total 100 525 Balance 1890 1805 990 Meds/Results Medications: Active Medications Generic Name Dose Route Start Last Admin Trade Name Freq PRN Reason Stop Dose Admin Benzonatate 200 mg 03/20/21 04:46 03/21/21 09:15 Benzonatate 100 Mg Capsule PO 200 mg Q4HR PRN Administration Cough Cyanocobalamin 1,000 mcg 03/19/21 09:00 03/21/21 09:17 Cyanocobalamin 1,000 Mcg Tablet PO 1,000 mcg Q48H URI Administration Dexamethasone 6 mg 03/19/21 08:00 03/21/21 09:17 Dexamethasone 2 Mg Tablet PO 03/28/21 08:01 6 mg DAILY@0800 URI Administration Enoxaparin Sodium 40 mg 03/20/21 09:00 03/21/21 09:15 Enoxaparin 40 Mg/0.4 Ml Syringe SUB-Q 40 mg DAILY URI Administration Folic Acid 0.4 mg 03/19/21 08:00 03/21/21 09:16 Folic Acid 0.4 Mg Tablet PO 0.4 mg Q48H URI Administration Hydrochlorothiazide 25 mg 03/19/21 09:00 03/21/21 09:16 Hydrochlorothiazide 25 Mg Tablet PO 25 mg QAM URI Administration
[2021-03-21] MEDS: REMDESIVIR 100 MG/NS 250 ML 100 MG/250 ML BAG 250 MG IVPB (21:48)
[2021-03-22] VITALS (11 sets, daily range): BP systolic 100–124; BP diastolic 54–67; PULSE 6–77; RESP 16–22; TEMP 36.4–36.9; O2SAT 82–94
[2021-03-22 07:02] LABS: Alanine Aminotransferase 74 U/L (4-50); Albumin Level 3.5 g/dL (3.5-5.1); Alkaline Phosphatase 41 U/L (38-126); Anion Gap 6 mmol/L (8-16); Aspartate Amino Transferase 108 U/L (17-59); Bilirubin,Total 0.6 mg/dL (0.2-1.3); Blood Urea Nitrogen 33 mg/dL (9-20); Calcium 8.6 mg/dL (8.4-10.2); Carbon Dioxide 28 mmol/L (22-30); Chloride 102 mmol/L (98-107); Estimated CRCL calculation 81 ml/min; Estimated Glomerular Filt Rate > 60; Glucose 126 mg/dL (65-110); INR 1.1; Potassium 3.6 mmol/L (3.4-5.0); Prothrombin Time 14.2 Seconds (11.1-14.7); Sodium 136 mmol/L (137-145)
[2021-03-22] MEDS: hydroCHLOROthiazide 25 MG TABLET PO (08:28)
[2021-03-22] MEDS: lisinopriL 20 MG TABLET PO (08:28)
[2021-03-22] MEDS: THERAPEUTIC MULTIVITAMINS/MINERALS TAB (*BKC) 1 TABLET PO (08:28)
[2021-03-22] MEDS: ENOXAPARIN 40 MG/0.4 ML SYRINGE SUB-Q (08:29)
[2021-03-22] MEDS: DEXAMETHASONE 2 MG TABLET 6 MG PO (08:29)
--- NOTE | 2021-03-22 11:08 | PM.IMPN ---
Progress Note: A&P Assessment and Plan (1) 2019 novel coronavirus-infected pneumonia (NCIP): Code(s): U07.1 - COVID-19; J12.82 - Pneumonia due to coronavirus disease 2019 Status: Acute Assessment and Plan: Patient has tested positive for COVID and continues to require increased o2 to keeps sats >90 -CTA shows no PE but it does show bilateral COVID pneumonia -patient on 12L of o2 -continue remdesivir, Decadron and Lovenox -I spoke to him about baricitinib and he does not want to go forward with it -liver enzymes worsened today but okay to continue with remdesivir at this time -plasma given 03/20/21 -wean oxygen as tolerated, continue supportive care -will place on continuous pulse ox (2) Acute respiratory failure with hypoxia: Code(s): J96.01 - Acute respiratory failure with hypoxia Status: Acute Assessment and Plan: Secondary to above -continue oxygen as needed to keep sats greater than 90 (3) Essential (primary) hypertension: Code(s): I10 - Essential (primary) hypertension Status: Acute Assessment and Plan: Last blood pressure is 100/54 -continue lisinopril and hydrochlorothiazide but add parameters Subjective Date/time seen: 03/22/21 11:08 Interval history: Pt is a 61 y/o male here for COVID. Patient was seen today and states he feels fine although he was told he is requiring oxygen. He does not feel like he is any worse today. He has a minimal cough. He feels short of breath when he is up doing things but is mostly in bed. He denies chest pain, fevers, chills, nausea, vomiting, diarrhea or constipation. He is eating and drinking well Exam Narrative: General: Well developed well nourished patient in NAD HEENT: normocephalic Neck: supple Neuro: Alert and oriented x4 CV:RRR Resp: Crackles, bilaterally. No wheezing or rhonchi. Able to take deeper breaths today Abd: Soft, non distended. No pain to palpation. Positive bowel sounds Extremities: No swelling, erythema, or pain to palpation. Objective Data Vital Signs Vital Signs: Vital Signs - 24 hr 03/21/21 12:00 03/21/21 16:00 03/21/21 20:00 Temperature 97.6 F 97.5 F L 98.8 F Pulse Rate 73 76 73 Respiratory Rate 20 18 20 Blood Pressure 118/53 L 117/65 107/54 L Pulse Oximetry 92 90 91 03/22/21 00:00 03/22/21 04:00 03/22/21 08:00 Temperature 98.1 F 97.8 F 98.4 F Pulse Rate 77 65 68 Respiratory Rate 22 H 20 16 Blood Pressure 110/63 124/66 100/54 L Pulse Oximetry 90 90 03/22/21 08:59 Temperature Pulse Rate Respiratory Rate Blood Pressure Pulse Oximetry 92 Intake/Output Intake/Output: Intake & Output 03/19/21 03/20/21 03/21/21 03/22/21 23:59 23:59 23:59 23:59 Intake Total 1989 2330 1900 620 Output Total 944 240 1153 Balance 1890 1805 1900 -380 Meds/Results Medications: Active Medications Generic Name Dose Route Start Last Admin Trade Name Freq PRN Reason Stop Dose Admin Benzonatate 200 mg 03/20/21 04:46 03/21/21 09:15 Benzonatate 100 Mg Capsule PO 200 mg Q4HR PRN Administration Cough Cyanocobalamin 1,000 mcg 03/19/21 09:00 03/21/21 09:17 Cyanocobalamin 1,000 Mcg Tablet PO 1,000 mcg Q48H URI Administration Dexamethasone 6 mg 03/19/21 08:00 03/22/21 08:29 Dexamethasone 2 Mg Tablet PO 03/28/21 08:01 6 mg DAILY@0800 URI Administration Enoxaparin Sodium 40 mg 03/20/21 09:00 03/22/21 08:29 Enoxaparin 40 Mg/0.4 Ml Syringe SUB-Q 40 mg DAILY URI Administration Folic Acid 0.4 mg 03/19/21 08:00 03/21/21 09:16 Folic Acid 0.4 Mg Tablet PO 0.4 mg Q48H URI Administration Hydrochlorothiazide 25 mg 03/19/21 09:00 03/22/21 08:28 Hydrochlorothiazide 25 Mg Tablet PO 25 mg QAM URI Administration Remdesivir 100 mg in 250 mls @ 250 mls/hr 03/19/21 22:00 03/21/21 21:48 IVPB 03/23/21 21:59 250 mls/hr Q24H URI Administration Lisinopril 20 mg 03/19/21 09:00 03/22/21 08:28 Li
--- NOTE | 2021-03-22 11:30 | PC.NURSE ---
Patient was increased to 12L High flow due to decrease o2 sats(patient was 82% on 4L). Homa VERDUGO notified. Patient is also declining baricitinib at this time. Will continue to monitor patient.
[2021-03-22] MEDS: REMDESIVIR 100 MG/NS 250 ML 100 MG/250 ML BAG 250 MG IVPB (21:41)
[2021-03-23] VITALS: BP 119/70; PULSE 62; PULSE 66; RESP 20; TEMP 36.7; O2SAT 94
[2021-03-23 04:00] VITALS: BP 122/71; PULSE 57; PULSE 61; RESP 22; TEMP 36.5; O2SAT 94
[2021-03-23 06:42] LABS: Basophils Percent Auto 0.2 % (0.2-1.2); Hematocrit 39.6 % (42.0-52.0); Hemoglobin 13.7 g/dL (14.0-18.0); Immature Granulocyte Absolute 0.18 K/mm3 (0.00-0.031); Immature Granulocyte Percent A 1.6 % (0-0.5); Lymphocytes Absolute Auto 0.83 K/mm3 (0.9-3.2); Lymphocytes Percent Auto 7.5 % (18.3-44.2); Mean Corpuscular HGB Conc 34.6 g/dl (32-36); Mean Corpuscular Hemoglobin 29.6 pg (26-34); Mean Corpuscular Volume 85.5 fl (80-100); Mean Platelet Volume 9.3 fl (7.4-10.4); Monocytes Absolute Auto 0.8 K/mm3 (0.1-0.6); Monocytes Percent Auto 7.2 % (2.6-8.5); Neutrophils Absolute Auto 9.3 K/mm3 (1.3-6.7); Neutrophils Percent Auto 83.5 % (45.5-73.1); Platelet Count Result 284 k/mm3 (150-375); Red Blood Count 4.63 M/mm3 (4.6-6.20); Red Cell Distribution Width 13.3 % (11.5-14.5); White Blood Count 11.1 K/mm3 (4.5-10.0)
[2021-03-23 06:53] LABS: Alanine Aminotransferase 126 U/L (4-50); Albumin Level 3.6 g/dL (3.5-5.1); Alkaline Phosphatase 41 U/L (38-126); Anion Gap 9 mmol/L (8-16); Aspartate Amino Transferase 126 U/L (17-59); Bilirubin,Total 0.8 mg/dL (0.2-1.3); Blood Urea Nitrogen 26 mg/dL (9-20); CRP 1.9 mg/dL (<1.0); Calcium 8.4 mg/dL (8.4-10.2); Carbon Dioxide 25 mmol/L (22-30); Chloride 103 mmol/L (98-107); Estimated CRCL calculation 90 ml/min; Estimated Glomerular Filt Rate > 60; Glucose 111 mg/dL (65-110); Lactate Dehydrogenase 862 U/L (313-618); Potassium 3.8 mmol/L (3.4-5.0); Sodium 137 mmol/L (137-145)
[2021-03-23 06:54] LABS: D Dimer 0.67 ug/mL (<0.48)
[2021-03-23 08:00] VITALS: BP 105/62; PULSE 66; RESP 20; TEMP 36.3; O2SAT 89; O2SAT 90
[2021-03-23] MEDS: DEXAMETHASONE 2 MG TABLET 6 MG PO (08:16)
[2021-03-23] MEDS: FOLIC ACID 0.4 MG TABLET PO (08:17)
[2021-03-23] MEDS: ENOXAPARIN 40 MG/0.4 ML SYRINGE SUB-Q (08:17)
[2021-03-23] MEDS: CYANOCOBALAMIN 1,000 MCG TABLET 1000 MCG PO (08:17)
[2021-03-23] MEDS: lisinopriL 20 MG TABLET PO (08:18)
[2021-03-23] MEDS: THERAPEUTIC MULTIVITAMINS/MINERALS TAB (*BKC) 1 TABLET PO (08:18)
[2021-03-23] MEDS: hydroCHLOROthiazide 25 MG TABLET PO (08:18)
--- NOTE | 2021-03-23 08:58 | PM.IMPN ---
Progress Note: A&P Assessment and Plan (1) 2019 novel coronavirus-infected pneumonia (NCIP): Code(s): U07.1 - COVID-19; J12.82 - Pneumonia due to coronavirus disease 2019 Status: Acute Assessment and Plan: Patient has tested positive for COVID and continues to require increased o2 to keeps sats >90 - he is now on 15 L of oxygen and at 95% -CTA shows no PE but it does show bilateral COVID pneumonia - repeat chest x-ray today shows stable airway disease -continue remdesivir ( another 5 days ordered), Decadron and Lovenox - because of his worsening, patient would like to go forward with baricitinib. I have spoke to pharmacy and we will monitor LFTs -liver enzymes worsened today but okay to continue with remdesivir at this time. these may need to be stopped if they continue to worsen -plasma given 03/20/21 -wean oxygen as tolerated, continue supportive care - on continuous pulse ox (2) Acute respiratory failure with hypoxia: Code(s): J96.01 - Acute respiratory failure with hypoxia Status: Acute Assessment and Plan: Secondary to above -continue oxygen as needed to keep sats greater than 90 (3) Essential (primary) hypertension: Code(s): I10 - Essential (primary) hypertension Status: Acute Assessment and Plan: Last blood pressure is 105/62 -continue lisinopril and hydrochlorothiazide with parameters (4) Transaminitis: Code(s): R74.01 - Elevation of levels of liver transaminase levels Status: Acute Assessment and Plan: Noted to be elevated more today compared to the last few days -monitor closely on remdesivir and baricitinib -will order hep screen and ruq u/s although I do think this is from COVID Subjective Date/time seen: 03/23/21 08:58 Interval history: Pt is a 61 y/o male here for COVID. Patient was seen today and states he feels a little bit worse but does not feel bad. He says he gets short of breath and coughs more when he is moving. He feels fine at rest. He is eating and drinking okay. No chest pain, nausea, vomiting, fevers, chills, or leg swelling. I spoke with his friend via telephone with him in the room and he has decided to go ahead with baricitinib. Exam Narrative: General: Well developed well nourished patient in NAD HEENT: normocephalic Neck: supple Neuro: Alert and oriented x4 CV:RRR Resp: Crackles, bilaterally. No wheezing or rhonchi. telemetry showing O2 sat of 95% on 15 L Abd: Soft, non distended. No pain to palpation. Positive bowel sounds Extremities: No swelling, erythema, or pain to palpation. Objective Data Vital Signs Vital Signs: Vital Signs - 24 hr 03/22/21 08:59 03/22/21 11:35 03/22/21 12:00 Temperature 97.6 F Pulse Rate 68 Respiratory Rate 16 Blood Pressure 117/62 Pulse Oximetry 92 92 92 03/22/21 16:00 03/22/21 20:00 03/23/21 00:00 Temperature 97.7 F 97.6 F 98.1 F Pulse Rate 67 62 62 Respiratory Rate 16 20 20 Blood Pressure 121/63 121/67 119/70 Pulse Oximetry 94 94 94 03/23/21 04:00 Temperature 97.7 F Pulse Rate 57 L Respiratory Rate 22 H Blood Pressure 122/71 Pulse Oximetry 94 Intake/Output Intake/Output: Intake & Output 03/20/21 03/21/21 03/22/21 03/23/21 23:59 23:59 23:59 23:59 Intake Total 2330 2150 2480 400 Output Total 525 1225 Balance 1805 2150 1255 400 Meds/Results Medications: Active Medications Generic Name Dose Route Start Last Admin Trade Name Freq PRN Reason Stop Dose Admin Albuterol 2 puff 03/23/21 08:57 Albuterol Sulfate (*Sp) Aerosol 1 Puff INHALATION Q6HRT PRN Shortness Of Breath Benzonatate 200 mg 03/20/21 04:46 03/21/21 09:15 Benzonatate 100 Mg Capsule PO 200 mg Q4HR PRN Administration Cough Cyanocobalamin 1,000 mcg 03/19/21 09:00 03/23/21 08:17 Cyanocobalamin 1,000 Mcg Tablet PO 1,000 mcg Q48H URI Administration Dexamethasone 6 mg 03/19/21 08:00 03/23/21 08:16
[2021-03-23 09:23] LABS: Base Excess ABG -2.7 mEq/l (+/-2.0); Carboxyhemoglobin 0.3 % THb (0-2.0); Fractional Inspired Oxygen 80 %; HCO3 ABG 19.4 mEq/l (22.0-26.0); Methemoglobin ABG 0.3 %THb (0-1.5); Modified Allen's Test Pass; Oxygen Content ABG 19.6 %vol (16.0-22.0); Oxyhemoglobin 91.6 % THb (90.0-100.0); PCO2 ABG 27.7 mmHg (35.0-45.0); PO2 ABG 64.3 mmHg (80.0-100.0); Reduced Hemoglobin 7.8 %THb (0-5.0); Site Drawn LEFT RADIAL; Total Hemoglobin 15.2 g/dL (12.0-18.0); pH ABG 7.464 (7.350-7.450)
[2021-03-23 09:24] LABS: Device HIGH FLOW NASAL CANN
[2021-03-23 12:00] VITALS: BP 115/67; PULSE 74; RESP 22; TEMP 36.8; O2SAT 93
[2021-03-23 13:39] LABS: Hepatitis B Surface Antigen Negative (Negative)
[2021-03-23 13:44] LABS: HAV RESULT Negative (Negative); Hepatitis B Core IgM Result Negative (Negative)
[2021-03-23 13:56] LABS: Hepatitis C Virus Antibody Negative (Negative)
[2021-03-23 16:00] VITALS: BP 121/65; PULSE 77; RESP 22; TEMP 36.4; O2SAT 95
--- NOTE | 2021-03-23 17:10 | PC.NURSE ---
Per patient, they would like to restart Olumiant and Remdesivir treatments. This nurse notified Dr. Valerio and per Dr. Valerio, restart treatments as previously ordered. Pharmacy made aware.
[2021-03-23] MEDS: BARICITINIB 1 MG TABLET 4 MG PO (17:38)
[2021-03-23 20:00] VITALS: BP 105/58; PULSE 73; PULSE 75; RESP 20; RESP 22; TEMP 36.4; O2SAT 94; O2SAT 95
[2021-03-23] MEDS: REMDESIVIR 100 MG/NS 250 ML 100 MG/250 ML BAG 250 MG IVPB (22:44)
[2021-03-24] VITALS: BP 120/75; PULSE 75; RESP 20; TEMP 36.7; O2SAT 95
[2021-03-24 04:00] VITALS: BP 119/73; PULSE 73; RESP 20; TEMP 36.4; O2SAT 91
[2021-03-24 06:08] LABS: Basophils Absolute Auto 0.1 K/mm3 (0.0-0.1); Basophils Percent Auto 0.6 % (0.2-1.2); Hematocrit 41.6 % (42.0-52.0); Hemoglobin 14.3 g/dL (14.0-18.0); Immature Granulocyte Absolute 0.48 K/mm3 (0.00-0.031); Immature Granulocyte Percent A 3.6 % (0-0.5); Lymphocytes Absolute Auto 1.04 K/mm3 (0.9-3.2); Lymphocytes Percent Auto 7.7 % (18.3-44.2); Mean Corpuscular HGB Conc 34.4 g/dl (32-36); Mean Corpuscular Volume 84.4 fl (80-100); Monocytes Absolute Auto 0.4 K/mm3 (0.1-0.6); Monocytes Percent Auto 3.3 % (2.6-8.5); Neutrophils Absolute Auto 11.4 K/mm3 (1.3-6.7); Neutrophils Percent Auto 84.8 % (45.5-73.1); Platelet Count Result 339 k/mm3 (150-375); Red Blood Count 4.93 M/mm3 (4.6-6.20); Red Cell Distribution Width 13.2 % (11.5-14.5); White Blood Count 13.4 K/mm3 (4.5-10.0)
[2021-03-24 06:22] LABS: Prothrombin Time 13.4 Seconds (11.1-14.7)
[2021-03-24 06:24] LABS: Alanine Aminotransferase 125 U/L (4-50); Albumin Level 3.9 g/dL (3.5-5.1); Alkaline Phosphatase 46 U/L (38-126); Anion Gap 10 mmol/L (8-16); Aspartate Amino Transferase 91 U/L (17-59); Bilirubin,Total 1.1 mg/dL (0.2-1.3); Blood Urea Nitrogen 26 mg/dL (9-20); Calcium 8.5 mg/dL (8.4-10.2); Carbon Dioxide 24 mmol/L (22-30); Chloride 103 mmol/L (98-107); Estimated CRCL calculation 81 ml/min; Estimated Glomerular Filt Rate > 60; Glucose 101 mg/dL (65-110); Potassium 3.6 mmol/L (3.4-5.0); Sodium 137 mmol/L (137-145)
[2021-03-24 08:00] VITALS: BP 90/51; PULSE 84; RESP 24; TEMP 36.6; O2SAT 92
[2021-03-24] MEDS: ENOXAPARIN 40 MG/0.4 ML SYRINGE SUB-Q (09:39)
[2021-03-24] MEDS: BENZONATATE 100 MG CAPSULE 200 MG PO (09:39)
[2021-03-24] MEDS: BARICITINIB 1 MG TABLET 4 MG PO (09:39)
[2021-03-24] MEDS: DEXAMETHASONE 2 MG TABLET 6 MG PO (09:39)
[2021-03-24] MEDS: THERAPEUTIC MULTIVITAMINS/MINERALS TAB (*BKC) 1 TABLET PO (09:39)
[2021-03-24] MEDS: lisinopriL 20 MG TABLET PO (09:39)
[2021-03-24] MEDS: hydroCHLOROthiazide 25 MG TABLET PO (09:39)
[2021-03-24] MEDS: ACETAMINOPHEN 325 MG TABLET 650 MG PO (09:42)
[2021-03-24 12:00] VITALS: BP 106/56; PULSE 88; RESP 24; TEMP 36.7; O2SAT 93
--- NOTE | 2021-03-24 15:46 | PM.IMPN ---
Progress Note: A&P Assessment and Plan (1) 2019 novel coronavirus-infected pneumonia (NCIP): Code(s): U07.1 - COVID-19; J12.82 - Pneumonia due to coronavirus disease 2019 Status: Acute Assessment and Plan: Patient has tested positive for COVID and continues to require increased o2 to keeps sats >90 - he is now on 15 L of oxygen and at 93% - yesterday he briefly declined remdesivir and baricitinib would like to go forward with it today -CTA shows no PE but it does show bilateral COVID pneumonia - repeat chest x-ray and inflammatory markers tomorrow -continue remdesivir ( another 5 days ordered), Decadron and Lovenox -liver enzymes have plateaued today. Monitor closely and if they worsen may need to consider stopping remdesivir -plasma given 03/20/21 -wean oxygen as tolerated, continue supportive care - on continuous pulse ox (2) Acute respiratory failure with hypoxia: Code(s): J96.01 - Acute respiratory failure with hypoxia Status: Acute Assessment and Plan: Secondary to above -continue oxygen as needed to keep sats greater than 90 (3) Essential (primary) hypertension: Code(s): I10 - Essential (primary) hypertension Status: Acute Assessment and Plan: Last blood pressure is 106/56 -continue lisinopril and hydrochlorothiazide with parameters (4) Transaminitis: Code(s): R74.01 - Elevation of levels of liver transaminase levels Status: Acute Assessment and Plan: seems to be plateauing - hepatitis screen negative. Liver ultrasound without abnormality - likely due to COVID - monitor while on remdesivir Subjective Date/time seen: 03/24/21 15:46 Interval history: Pt is a 61 y/o male here for COVID. patient was seen today and says is feeling better than he was earlier this morning and yesterday. After some thought, he does want to continue with the Remdesivir and baricitinib as well as the Decadron and Lovenox. He says his shortness of breath is better today. He has been sitting up and sitting in the chair without shortness of breath. he has not been coughing. He is eating and drinking well. No chest pain Exam Narrative: General: Well developed well nourished patient in NAD HEENT: normocephalic Neck: supple Neuro: Alert and oriented x4 CV:RRR Resp: Crackles, bilaterally. No wheezing or rhonchi. telemetry showing 90% saturations on 15 L Abd: Soft, non distended. No pain to palpation. Positive bowel sounds Extremities: No swelling, erythema, or pain to palpation. Objective Data Vital Signs Vital Signs: Vital Signs - 24 hr 03/23/21 16:00 03/23/21 20:00 03/24/21 00:00 Temperature 97.6 F 97.6 F 98.1 F Pulse Rate 77 75 75 Respiratory Rate 22 H 20 20 Blood Pressure 121/65 105/58 L 120/75 Pulse Oximetry 95 95 95 03/24/21 04:00 03/24/21 08:00 03/24/21 12:00 Temperature 97.5 F L 97.9 F 98.0 F Pulse Rate 73 84 88 Respiratory Rate 20 24 H 24 H Blood Pressure 119/73 90/51 L 106/56 L Pulse Oximetry 91 92 93 Intake/Output Intake/Output: Intake & Output 03/21/21 03/22/21 03/23/21 03/24/21 23:59 23:59 23:59 23:59 Intake Total 2150 2480 1310 Output Total 1225 950 150 Balance 2150 1255 360 -150 Meds/Results Medications: Active Medications Generic Name Dose Route Start Last Admin Trade Name Freq PRN Reason Stop Dose Admin Acetaminophen 650 mg 03/24/21 09:28 03/24/21 09:42 Acetaminophen 325 Mg Tablet PO 650 mg Q4H PRN Administration Mild Pain (1-3) or Fever Albuterol 2 puff 03/23/21 08:57 Albuterol Sulfate (*Sp) Aerosol 1 Puff INHALATION Q6HRT PRN Shortness Of Breath Baricitinib 4 mg 03/24/21 09:00 03/24/21 09:39 Baricitinib 1 Mg Tablet PO 04/05/21 09:01 4 mg DAILY URI Administration Benzonatate 200 mg 03/20/21 04:46 03/24/21 09:39 Benzonatate 100 Mg Capsule PO 200 mg Q4HR PRN Administration Cough Cyanocobalamin 1,000 mcg
[2021-03-24 16:00] VITALS: BP 118/68; PULSE 72; RESP 20; TEMP 37.4; O2SAT 96
[2021-03-24 20:00] VITALS: BP 121/58; PULSE 74; RESP 20; TEMP 36.7; O2SAT 94
[2021-03-24] MEDS: REMDESIVIR 100 MG/NS 250 ML 100 MG/250 ML BAG 250 MG IVPB (21:19)
[2021-03-25 04:00] VITALS: BP 112/66; PULSE 70; RESP 20; TEMP 36.9; O2SAT 94
[2021-03-25 04:32] VITALS: O2SAT 98
[2021-03-25 06:25] LABS: Basophils Absolute Auto 0.1 K/mm3 (0.0-0.1); Basophils Percent Auto 0.5 % (0.2-1.2); Eosinophils Percent Auto 0.1 % (0-4.4); Hematocrit 41.7 % (42.0-52.0); Hemoglobin 14.4 g/dL (14.0-18.0); Immature Granulocyte Absolute 0.63 K/mm3 (0.00-0.031); Immature Granulocyte Percent A 4.3 % (0-0.5); Lymphocytes Absolute Auto 0.75 K/mm3 (0.9-3.2); Lymphocytes Percent Auto 5.1 % (18.3-44.2); Mean Corpuscular HGB Conc 34.5 g/dl (32-36); Mean Corpuscular Hemoglobin 29.8 pg (26-34); Mean Corpuscular Volume 86.3 fl (80-100); Mean Platelet Volume 9.5 fl (7.4-10.4); Monocytes Absolute Auto 0.4 K/mm3 (0.1-0.6); Monocytes Percent Auto 2.8 % (2.6-8.5); Neutrophils Absolute Auto 12.9 K/mm3 (1.3-6.7); Neutrophils Percent Auto 87.2 % (45.5-73.1); Platelet Count Result 346 k/mm3 (150-375); Red Blood Count 4.83 M/mm3 (4.6-6.20); Red Cell Distribution Width 13.4 % (11.5-14.5); White Blood Count 14.8 K/mm3 (4.5-10.0)
[2021-03-25 06:39] LABS: Alanine Aminotransferase 97 U/L (4-50); Albumin Level 3.8 g/dL (3.5-5.1); Alkaline Phosphatase 43 U/L (38-126); Anion Gap 8 mmol/L (8-16); Aspartate Amino Transferase 56 U/L (17-59); Blood Urea Nitrogen 29 mg/dL (9-20); CRP 4.7 mg/dL (<1.0); Calcium 8.7 mg/dL (8.4-10.2); Carbon Dioxide 26 mmol/L (22-30); Chloride 102 mmol/L (98-107); Estimated CRCL calculation 73 ml/min; Estimated Glomerular Filt Rate > 60; Glucose 113 mg/dL (65-110); Lactate Dehydrogenase 803 U/L (313-618); Potassium 4.3 mmol/L (3.4-5.0); Sodium 136 mmol/L (137-145)
[2021-03-25 06:45] LABS: Prothrombin Time 13.5 Seconds (11.1-14.7)
[2021-03-25 08:00] VITALS: BP 104/57; PULSE 75; RESP 14; TEMP 36.8; O2SAT 89; O2SAT 91
[2021-03-25] MEDS: ENOXAPARIN 40 MG/0.4 ML SYRINGE SUB-Q (08:05)
[2021-03-25] MEDS: lisinopriL 20 MG TABLET PO (08:06)
[2021-03-25] MEDS: CYANOCOBALAMIN 1,000 MCG TABLET 1000 MCG PO (08:06)
[2021-03-25] MEDS: DEXAMETHASONE 2 MG TABLET 6 MG PO (08:06)
[2021-03-25] MEDS: FOLIC ACID 0.4 MG TABLET PO (08:06)
[2021-03-25] MEDS: hydroCHLOROthiazide 25 MG TABLET PO (08:07)
[2021-03-25] MEDS: THERAPEUTIC MULTIVITAMINS/MINERALS TAB (*BKC) 1 TABLET PO (08:07)
[2021-03-25] MEDS: BARICITINIB 2 MG TABLET 4 MG PO (09:41)
--- NOTE | 2021-03-25 10:43 | PCNWS ---
Weekly nutritional screen. Patient is tolerating current diet with adequate intake. No weight loss reported. No nutritional needs at this time.
[2021-03-25 12:00] VITALS: BP 106/55; PULSE 73; RESP 16; TEMP 37; O2SAT 97
--- NOTE | 2021-03-25 15:52 | PM.IMPN ---
Progress Note: A&P Assessment and Plan (1) 2019 novel coronavirus-infected pneumonia (NCIP): Code(s): U07.1 - COVID-19; J12.82 - Pneumonia due to coronavirus disease 2019 Status: Acute Assessment and Plan: + for COVID and continues to require increased o2 to keeps sats >90 On 15 L of oxygen and >94% Continue with remdesivir and baricitin and Decadron CTA shows no PE but it does show bilateral COVID pneumonia Repeat chest x-ray-->Bilateral pulmonary infiltrates, greater on the right, mildly increased on the right since 04/09/2021 inflammatory markers improving plasma given 03/20/21 wean oxygen as tolerated, continue supportive care continuous pulse ox (2) Acute respiratory failure with hypoxia: Code(s): J96.01 - Acute respiratory failure with hypoxia Status: Acute Assessment and Plan: Secondary to above Continue oxygen as needed to keep sats greater than 90 (3) Essential (primary) hypertension: Code(s): I10 - Essential (primary) hypertension Status: Acute Assessment and Plan: BP stable continue lisinopril and hydrochlorothiazide with parameters Monitor (4) Transaminitis: Code(s): R74.01 - Elevation of levels of liver transaminase levels Status: Acute Assessment and Plan: Improving hepatitis screen negative Liver ultrasound without abnormality likely due to COVID monitor while on remdesivir Subjective Date/time seen: 03/25/21 15:52 Interval history: pt seen and evaluated; labs, vs and diagnostic reports reviewed; he continues with SOB on 15 L HF NC; no new complaints Review of Systems Review of Systems: All systems reviewed & are unremarkable except as noted in HPI and below Exam Const: General: no acute distress, alert and awake Orientation/consciousness: patient oriented x3 HENMT: Head: normocephalic and atraumatic Ears: hearing grossly normal bilaterally and external ears normal Face and sinus: face symmetric Mouth: Yes Normal oral and palatal mucosa present Eyes: EOM: EOMs intact bilaterally Neck: Neck: full ROM, trachea midline and no JVD Chest: Chest palpation & inspection: normal inspection of the chest Resp: Effort & Inspection: normal respiratory effort Cardio: Jugular venous distension: no JVD Rate: regular rate Rhythm: regular rhythm Heart sounds: S1 normal heart sound present and S2 normal heart sound present GI: Inspection: normal to inspection Percussion: Yes normal to percussion Auscultation: normal bowel sounds : General: Yes no CVA tenderness Skin: General skin exam: normal color Rashes: no rashes Neuro: General: patient oriented x3 and CN's II-XI intact bilaterally Cranial nerves: Yes Equal, round and reactive pupils present Speech: normal speech Psych: Appearance: grossly normal Affect: normal affect Judgement: Good judgement present (Psych) Objective Data Vital Signs Vital Signs: Vital Signs - 24 hr 03/24/21 16:00 03/24/21 20:00 03/25/21 04:00 Temperature 37.4 C 36.7 C 36.9 C Pulse Rate 72 74 70 Respiratory Rate 20 20 20 Blood Pressure 118/68 121/58 L 112/66 Pulse Oximetry 96 94 94 03/25/21 04:32 03/25/21 08:00 03/25/21 12:00 Temperature 36.8 C 37.0 C Pulse Rate 75 73 Respiratory Rate 14 16 Blood Pressure 104/57 L 106/55 L Pulse Oximetry 98 91 97 Intake/Output Intake/Output: Intake & Output 03/22/21 03/23/21 03/24/21 03/25/21 23:59 23:59 23:59 23:59 Intake Total 2480 1310 1080 1070 Output Total 1225 636 136 1783 Balance 1255 360 230 70 Meds/Results Medications: Active Medications Generic Name Dose Route Start Last Admin Trade Name Freq PRN Reason Stop Dose Admin Acetaminophen 650 mg 03/24/21 09:28 03/24/21 09:42 Acetaminophen 325 Mg Tablet PO 650 mg Q4H PRN Administration Mild Pain (1-3) or Fever Albuterol 2 puff 03/23/21 08:57 Albuterol Sulfate (*Sp) Aerosol 1 Puff INHALATION Q6HRT PRN Shortness Of Breath Baricitinib
[2021-03-25 16:00] VITALS: BP 101/57; PULSE 74; RESP 16; TEMP 36.9; O2SAT 97
[2021-03-25 20:00] VITALS: BP 103/55; PULSE 71; RESP 20; TEMP 37.2; O2SAT 97
[2021-03-25] MEDS: REMDESIVIR 100 MG/NS 250 ML 100 MG/250 ML BAG 250 MG IVPB (21:15)
[2021-03-26] VITALS (7 sets, daily range): BP systolic 98–118; BP diastolic 54–67; PULSE 66–85; RESP 16–20; TEMP 36.3–37.1; O2SAT 91–98
[2021-03-26 06:55] LABS: Basophils Absolute Auto 0.1 K/mm3 (0.0-0.1); Basophils Percent Auto 0.4 % (0.2-1.2); Eosinophils Absolute Auto 0.1 K/mm3 (0-0.3); Eosinophils Percent Auto 0.3 % (0-4.4); Hematocrit 40.6 % (42.0-52.0); Hemoglobin 13.9 g/dL (14.0-18.0); Immature Granulocyte Absolute 0.97 K/mm3 (0.00-0.031); Immature Granulocyte Percent A 4.8 % (0-0.5); Lymphocytes Absolute Auto 0.76 K/mm3 (0.9-3.2); Lymphocytes Percent Auto 3.8 % (18.3-44.2); Mean Corpuscular HGB Conc 34.2 g/dl (32-36); Mean Corpuscular Hemoglobin 29.6 pg (26-34); Mean Corpuscular Volume 86.6 fl (80-100); Mean Platelet Volume 9.1 fl (7.4-10.4); Monocytes Absolute Auto 0.7 K/mm3 (0.1-0.6); Monocytes Percent Auto 3.5 % (2.6-8.5); Neutrophils Absolute Auto 17.5 K/mm3 (1.3-6.7); Neutrophils Percent Auto 87.2 % (45.5-73.1); Platelet Count Result 388 k/mm3 (150-375); Red Blood Count 4.69 M/mm3 (4.6-6.20); Red Cell Distribution Width 13.5 % (11.5-14.5); White Blood Count 20.1 K/mm3 (4.5-10.0)
[2021-03-26 06:57] LABS: Alanine Aminotransferase 72 U/L (4-50); Aspartate Amino Transferase 70 U/L (17-59); Estimated CRCL calculation 81 ml/min; Estimated Glomerular Filt Rate > 60
[2021-03-26 07:21] LABS: INR 1.1; Prothrombin Time 13.9 Seconds (11.1-14.7)
[2021-03-26] MEDS: BARICITINIB 2 MG TABLET 4 MG PO (08:52)
[2021-03-26] MEDS: ENOXAPARIN 40 MG/0.4 ML SYRINGE SUB-Q (08:52)
[2021-03-26] MEDS: BENZONATATE 100 MG CAPSULE 200 MG PO (08:53)
[2021-03-26] MEDS: DEXAMETHASONE 2 MG TABLET 6 MG PO (08:53)
[2021-03-26] MEDS: THERAPEUTIC MULTIVITAMINS/MINERALS TAB (*BKC) 1 TABLET PO (08:53)
--- NOTE | 2021-03-26 13:08 | PM.IMPN ---
Progress Note: A&P Assessment and Plan (1) 2019 novel coronavirus-infected pneumonia (NCIP): Code(s): U07.1 - COVID-19; J12.82 - Pneumonia due to coronavirus disease 2019 Status: Acute Assessment and Plan: + for COVID and continues to require increased o2 to keeps sats >90 On 15 L of oxygen and >94% Continue with remdesivir and baricitin and Decadron CTA shows no PE but it does show bilateral COVID pneumonia Repeat chest x-ray-->Bilateral pulmonary infiltrates, greater on the right, mildly increased on the right since 04/09/2021 inflammatory markers improving plasma given 03/20/21 wean oxygen as tolerated, continue supportive care continuous pulse ox (2) Acute respiratory failure with hypoxia: Code(s): J96.01 - Acute respiratory failure with hypoxia Status: Acute Assessment and Plan: Secondary to above Continue oxygen as needed to keep sats greater than 90 (3) Essential (primary) hypertension: Code(s): I10 - Essential (primary) hypertension Status: Acute Assessment and Plan: BP stable continue lisinopril and hydrochlorothiazide with parameters Monitor (4) Transaminitis: Code(s): R74.01 - Elevation of levels of liver transaminase levels Status: Acute Assessment and Plan: AST elevated today hepatitis screen negative Liver ultrasound without abnormality likely due to COVID monitor while on remdesivir Subjective Date/time seen: 03/26/21 13:08 Interval history: 03/25 pt seen and evaluated; labs, vs and diagnostic reports reviewed; he continues with SOB on 15 L HF NC; no new complaints 03/26 pt seen and evaluated; continues with SOB and WESTON; on 15 L HF NC; feeling hopeful; appetite is good Review of Systems Review of Systems: All systems reviewed & are unremarkable except as noted in HPI and below Exam Const: General: no acute distress, alert and awake Orientation/consciousness: patient oriented x3 HENMT: Head: normocephalic and atraumatic Ears: hearing grossly normal bilaterally and external ears normal Face and sinus: face symmetric Mouth: Yes Normal oral and palatal mucosa present Eyes: Pupils: Equal, round and reactive pupils present EOM: EOMs intact bilaterally Neck: Neck: full ROM, trachea midline and no JVD Chest: Chest palpation & inspection: normal inspection of the chest Resp: Effort & Inspection: normal respiratory effort Cardio: Jugular venous distension: no JVD Rate: regular rate Rhythm: regular rhythm Heart sounds: S1 normal heart sound present and S2 normal heart sound present GI: Inspection: normal to inspection Auscultation: normal bowel sounds : General: Yes no CVA tenderness Back/Spine/Pelvis: Back: no CVA tenderness Skin: General skin exam: normal color Rashes: no rashes Neuro: General: patient oriented x3 and CN's II-XI intact bilaterally Cranial nerves: Yes Equal, round and reactive pupils present Speech: normal speech Psych: Appearance: grossly normal Affect: normal affect Judgement: Good judgement present (Psych) Objective Data Vital Signs Vital Signs: Vital Signs - 24 hr 03/25/21 16:00 03/25/21 20:00 03/26/21 00:00 Temperature 36.9 C 37.2 C 37.1 C Pulse Rate 74 71 73 Respiratory Rate 16 20 20 Blood Pressure 101/57 L 103/55 L 116/64 Pulse Oximetry 97 97 97 03/26/21 04:00 03/26/21 08:00 03/26/21 12:00 Temperature 37.0 C 36.3 C L 36.4 C L Pulse Rate 66 76 85 Respiratory Rate 20 16 18 Blood Pressure 118/66 104/67 106/56 L Pulse Oximetry 97 91 94 Intake/Output Intake/Output: Intake & Output 03/23/21 03/24/21 03/25/21 03/26/21 23:59 23:59 23:59 23:59 Intake Total 1310 1080 2790 880 Output Total 660 934 8742 400 Balance 654 970 3320 480 Meds/Results Medications: Active Medications Generic Name Dose Route Start Last Admin Trade Name Samirq PRN Reason Stop Dose Admin Acetaminophen 650 mg 03/24/21 09:28 03/24/21 09:42 Acetaminophen 325 Mg Tablet PO 650 mg
[2021-03-26] MEDS: REMDESIVIR 100 MG/NS 250 ML 100 MG/250 ML BAG 250 MG IVPB (21:59)
[2021-03-27] VITALS (14 sets, daily range): BP systolic 102–129; BP diastolic 52–68; PULSE 62–100; RESP 18–22; TEMP 36.1–37.6; O2SAT 89–98
[2021-03-27 06:54] LABS: Basophils Absolute Auto 0.1 K/mm3 (0.0-0.1); Basophils Percent Auto 0.4 % (0.2-1.2); Eosinophils Percent Auto 0.1 % (0-4.4); Hematocrit 39.6 % (42.0-52.0); Hemoglobin 13.6 g/dL (14.0-18.0); Immature Granulocyte Absolute 0.72 K/mm3 (0.00-0.031); Immature Granulocyte Percent A 4.3 % (0-0.5); Lymphocytes Absolute Auto 0.52 K/mm3 (0.9-3.2); Lymphocytes Percent Auto 3.1 % (18.3-44.2); Mean Corpuscular HGB Conc 34.3 g/dl (32-36); Mean Corpuscular Hemoglobin 29.3 pg (26-34); Mean Corpuscular Volume 85.3 fl (80-100); Mean Platelet Volume 9.3 fl (7.4-10.4); Monocytes Absolute Auto 0.6 K/mm3 (0.1-0.6); Monocytes Percent Auto 3.6 % (2.6-8.5); Neutrophils Absolute Auto 14.9 K/mm3 (1.3-6.7); Neutrophils Percent Auto 88.5 % (45.5-73.1); Platelet Count Result 372 k/mm3 (150-375); Red Blood Count 4.64 M/mm3 (4.6-6.20); Red Cell Distribution Width 13.3 % (11.5-14.5); White Blood Count 16.8 K/mm3 (4.5-10.0)
[2021-03-27 07:05] LABS: Alanine Aminotransferase 58 U/L (4-50); Aspartate Amino Transferase 77 U/L (17-59); Estimated CRCL calculation 81 ml/min; Estimated Glomerular Filt Rate > 60
[2021-03-27 07:16] LABS: INR 1.1; Prothrombin Time 13.9 Seconds (11.1-14.7)
[2021-03-27] MEDS: ENOXAPARIN 40 MG/0.4 ML SYRINGE SUB-Q (09:25)
[2021-03-27] MEDS: DEXAMETHASONE 2 MG TABLET 6 MG PO (09:25)
[2021-03-27] MEDS: THERAPEUTIC MULTIVITAMINS/MINERALS TAB (*BKC) 1 TABLET PO (09:25)
[2021-03-27] MEDS: CYANOCOBALAMIN 1,000 MCG TABLET 1000 MCG PO (09:26)
[2021-03-27] MEDS: BARICITINIB 2 MG TABLET 4 MG PO (09:26)
[2021-03-27] MEDS: FOLIC ACID 0.4 MG TABLET PO (09:27)
--- NOTE | 2021-03-27 10:02 | PM.IMPN ---
Progress Note: A&P Assessment and Plan (1) 2019 novel coronavirus-infected pneumonia (NCIP): Code(s): U07.1 - COVID-19; J12.82 - Pneumonia due to coronavirus disease 2019 Status: Acute Assessment and Plan: + for COVID and continues to require increased o2 to keeps sats >90 Was on15 L of oxygen and >94% Continue with remdesivir and baricitin and Decadron, will need another 5 days CTA shows no PE but it does show bilateral COVID pneumonia Repeat chest x-ray-->Bilateral pulmonary infiltrates, greater on the right, mildly increased on the right since 04/09/2021 inflammatory markers improving plasma given 03/20/21 wean oxygen as tolerated, continue supportive care continuous pulse ox Proning encouraged Transferred to IMU, on AirVo 50 L 60% (2) Acute respiratory failure with hypoxia: Code(s): J96.01 - Acute respiratory failure with hypoxia Status: Acute Assessment and Plan: Secondary to above Continue oxygen as needed to keep sats greater than 90 (3) Essential (primary) hypertension: Code(s): I10 - Essential (primary) hypertension Status: Acute Assessment and Plan: BP stable continue lisinopril and hydrochlorothiazide with parameters Monitor (4) Transaminitis: Code(s): R74.01 - Elevation of levels of liver transaminase levels Status: Acute Assessment and Plan: hepatitis screen negative Liver ultrasound without abnormality likely due to COVID monitor while on remdesivir Subjective Date/time seen: 03/27/21 10:02 Interval history: 03/25 pt seen and evaluated; labs, vs and diagnostic reports reviewed; he continues with SOB on 15 L HF NC; no new complaints 03/26 pt seen and evaluated; continues with SOB and [place]STON; on 15 L HF NC; feeling hopeful; appetite is good 10/ pt with increased O2 needs this morning; +SOB and [place]STON sats 88% on 15 HF NC Review of Systems Review of Systems: All systems reviewed & are unremarkable except as noted in HPI and below Exam Const: General: no acute distress, alert and awake Orientation/consciousness: patient oriented x3 HENMT: Head: normocephalic and atraumatic Ears: hearing grossly normal bilaterally and external ears normal Face and sinus: face symmetric Mouth: Yes Normal oral and palatal mucosa present Eyes: Pupils: Equal, round and reactive pupils present EOM: EOMs intact bilaterally Neck: Neck: full ROM, trachea midline and no JVD Chest: Chest palpation & inspection: normal inspection of the chest Resp: Effort & Inspection: normal respiratory effort Cardio: Jugular venous distension: no JVD Rate: regular rate Rhythm: regular rhythm Heart sounds: S1 normal heart sound present and S2 normal heart sound present GI: Inspection: normal to inspection Auscultation: normal bowel sounds : General: Yes no CVA tenderness Back/Spine/Pelvis: Back: no CVA tenderness Skin: General skin exam: normal color Rashes: no rashes Neuro: General: patient oriented x3 and CN's II-XI intact bilaterally Cranial nerves: Yes Equal, round and reactive pupils present Speech: normal speech Psych: Appearance: grossly normal Affect: normal affect Judgement: Good judgement present (Psych) Objective Data Vital Signs Vital Signs: Vital Signs - 24 hr 03/26/21 12:00 03/26/21 16:00 03/26/21 20:00 Temperature 36.4 C L 36.6 C 36.4 C Pulse Rate 85 78 78 Respiratory Rate 18 18 18 Blood Pressure 106/56 L 113/57 L 98/54 L Pulse Oximetry 94 91 98 03/26/21 21:19 03/27/21 00:00 03/27/21 04:00 Temperature 36.7 C 36.9 C Pulse Rate 69 78 Respiratory Rate 18 18 Blood Pressure 122/68 125/63 Pulse Oximetry 98 96 94 03/27/21 09:10 Temperature Pulse Rate Respiratory Rate Blood Pressure Pulse Oximetry 94 Intake/Output Intake/Output: Intake & Output 03/24/21 03/25/21 03/26/21 03/27/21 23:59 23:59 23:59 23:59 Intake Total 1080 3040 2360 300 Output Total 850 1500 1300 600 Balance 230 1540 1060 -300 M
--- NOTE | 2021-03-27 11:16 | PC.NURSE ---
Patient contacts, Nell Gallagher sister and Jennifer friend, were contacted and updated on patient condition and moved to IMU room 204.
--- NOTE | 2021-03-27 11:45 | PC.NURSE ---
Pt transferred to IMU 204 via bed with 15 HFNC and 15 NRB. Report called to Judson. Pt family and contact notified by Cristiane Ball.
--- NOTE | 2021-03-27 11:58 | PC.NURSE ---
This patient, Bryan Yang, was received from [ 3 med surg] on 03/27/21 at 1130. Patient/family oriented to unit policies and routines
[2021-03-27] MEDS: REMDESIVIR 100 MG/NS 250 ML 100 MG/250 ML BAG 250 MG IVPB (23:20)
[2021-03-28] VITALS (19 sets, daily range): BP systolic 81–121; BP diastolic 46–64; PULSE 60–105; RESP 20–22; TEMP 36.6–36.9; O2SAT 90–98
[2021-03-28 05:33] LABS: Basophils Absolute Auto 0.1 K/mm3 (0.0-0.1); Basophils Percent Auto 0.3 % (0.2-1.2); Eosinophils Percent Auto 0.2 % (0-4.4); Hematocrit 38.9 % (42.0-52.0); Hemoglobin 13.5 g/dL (14.0-18.0); Immature Granulocyte Absolute 0.41 K/mm3 (0.00-0.031); Immature Granulocyte Percent A 2.8 % (0-0.5); Lymphocytes Absolute Auto 0.35 K/mm3 (0.9-3.2); Lymphocytes Percent Auto 2.4 % (18.3-44.2); Mean Corpuscular HGB Conc 34.7 g/dl (32-36); Mean Corpuscular Hemoglobin 29.2 pg (26-34); Mean Corpuscular Volume 84.2 fl (80-100); Mean Platelet Volume 9.1 fl (7.4-10.4); Monocytes Absolute Auto 0.4 K/mm3 (0.1-0.6); Monocytes Percent Auto 2.8 % (2.6-8.5); Neutrophils Absolute Auto 13.6 K/mm3 (1.3-6.7); Neutrophils Percent Auto 91.5 % (45.5-73.1); Platelet Count Result 404 k/mm3 (150-375); Red Blood Count 4.62 M/mm3 (4.6-6.20); Red Cell Distribution Width 13.3 % (11.5-14.5); White Blood Count 14.8 K/mm3 (4.5-10.0)
[2021-03-28 05:44] LABS: Alanine Aminotransferase 47 U/L (4-50); Aspartate Amino Transferase 34 U/L (17-59); Estimated CRCL calculation 81 ml/min; Estimated Glomerular Filt Rate > 60
[2021-03-28 05:51] LABS: INR 1.1; Prothrombin Time 13.7 Seconds (11.1-14.7)
[2021-03-28] MEDS: lisinopriL 20 MG TABLET PO (08:56)
[2021-03-28] MEDS: DEXAMETHASONE 2 MG TABLET 6 MG PO (08:56)
[2021-03-28] MEDS: THERAPEUTIC MULTIVITAMINS/MINERALS TAB (*BKC) 1 TABLET PO (08:56)
[2021-03-28] MEDS: hydroCHLOROthiazide 25 MG TABLET PO (08:56)
[2021-03-28] MEDS: ENOXAPARIN 40 MG/0.4 ML SYRINGE SUB-Q (08:56)
[2021-03-28] MEDS: BARICITINIB 2 MG TABLET 4 MG PO (08:56)
--- NOTE | 2021-03-28 16:04 | PM.IMPN ---
Progress Note: A&P Assessment and Plan (1) 2019 novel coronavirus-infected pneumonia (NCIP): Code(s): U07.1 - COVID-19; J12.82 - Pneumonia due to coronavirus disease 2019 Status: Acute Assessment and Plan: + for COVID and continues to require increased o2 to keeps sats >90 Was on15 L of oxygen and >94% s/p remdesivir 10 days Continue with and baricitin and Decadron CTA shows no PE but it does show bilateral COVID pneumonia Repeat chest x-ray-->Bilateral pulmonary infiltrates, greater on the right, mildly increased on the right since 04/09/2021 inflammatory markers improving plasma given 03/20/21 wean oxygen as tolerated, continue supportive care continuous pulse ox Proning encouraged Transferred to IMU, on AirVo 50 L 60% (2) Acute respiratory failure with hypoxia: Code(s): J96.01 - Acute respiratory failure with hypoxia Status: Acute Assessment and Plan: Secondary to above Continue oxygen as needed to keep sats greater than 90 (3) Essential (primary) hypertension: Code(s): I10 - Essential (primary) hypertension Status: Acute Assessment and Plan: BP stable continue lisinopril and hydrochlorothiazide with parameters Monitor (4) Transaminitis: Code(s): R74.01 - Elevation of levels of liver transaminase levels Status: Acute Assessment and Plan: hepatitis screen negative Liver ultrasound without abnormality likely due to COVID monitor while on remdesivir Subjective Date/time seen: 03/28/21 16:05 Interval history: 03/25 pt seen and evaluated; labs, vs and diagnostic reports reviewed; he continues with SOB on 15 L HF NC; no new complaints / pt seen and evaluated; continues with SOB and [place]STON; on 15 L HF NC; feeling hopeful; appetite is good 10/ pt with increased O2 needs this morning; +SOB and WESTON sats 88% on 15 HF NC 10/ pt up to chair; on AirVo; +WESTON Review of Systems Review of Systems: All systems reviewed & are unremarkable except as noted in HPI and below Exam Const: General: no acute distress, alert and awake Orientation/consciousness: patient oriented x3 HENMT: Head: normocephalic and atraumatic Ears: hearing grossly normal bilaterally and external ears normal Face and sinus: face symmetric Mouth: Yes Normal oral and palatal mucosa present Eyes: Pupils: Equal, round and reactive pupils present EOM: EOMs intact bilaterally Neck: Neck: full ROM, trachea midline and no JVD Chest: Chest palpation & inspection: normal inspection of the chest Resp: Effort & Inspection: normal respiratory effort Cardio: Jugular venous distension: no JVD Rate: regular rate Rhythm: regular rhythm Heart sounds: S1 normal heart sound present and S2 normal heart sound present GI: Inspection: normal to inspection Auscultation: normal bowel sounds : General: Yes no CVA tenderness Back/Spine/Pelvis: Back: no CVA tenderness Skin: General skin exam: normal color Rashes: no rashes Neuro: General: patient oriented x3 and CN's II-XI intact bilaterally Cranial nerves: Yes Equal, round and reactive pupils present Speech: normal speech Psych: Appearance: grossly normal Affect: normal affect Judgement: Good judgement present (Psych) Objective Data Vital Signs Vital Signs: Vital Signs - 24 hr 03/27/21 17:41 03/27/21 20:00 03/27/21 20:54 Temperature 36.1 C L Pulse Rate 86 89 Respiratory Rate 20 Blood Pressure 102/52 L Pulse Oximetry 92 92 03/27/21 22:00 03/27/21 23:40 03/28/21 00:00 Temperature 36.5 C Pulse Rate 83 71 78 Respiratory Rate 20 20 Blood Pressure 104/61 Pulse Oximetry 98 98 03/28/21 01:30 03/28/21 04:00 03/28/21 04:40 Temperature 36.8 C Pulse Rate 65 71 71 Respiratory Rate 20 20 Blood Pressure 120/64 Pulse Oximetry 98 98 03/28/21 05:53 03/28/21 08:00 03/28/21 08:46 Temperature 36.6 C Pulse Rate 60 76 83 Respiratory Rate 20 Blood Pressure 121/53 L Pulse Oximetry 93 90
[2021-03-29] VITALS (21 sets, daily range): BP systolic 92–129; BP diastolic 49–78; PULSE 56–106; RESP 16–24; TEMP 35.9–37.8; O2SAT 91–100
[2021-03-29 07:07] LABS: Basophils Percent Auto 0.3 % (0.2-1.2); Eosinophils Percent Auto 0.3 % (0-4.4); Hematocrit 38.7 % (42.0-52.0); Hemoglobin 13.3 g/dL (14.0-18.0); Immature Granulocyte Absolute 0.53 K/mm3 (0.00-0.031); Immature Granulocyte Percent A 3.6 % (0-0.5); Lymphocytes Percent Auto 2.8 % (18.3-44.2); Mean Corpuscular HGB Conc 34.4 g/dl (32-36); Mean Corpuscular Hemoglobin 29.2 pg (26-34); Mean Corpuscular Volume 84.9 fl (80-100); Mean Platelet Volume 9.1 fl (7.4-10.4); Monocytes Absolute Auto 0.4 K/mm3 (0.1-0.6); Neutrophils Absolute Auto 13.1 K/mm3 (1.3-6.7); Platelet Count Result 385 k/mm3 (150-375); Red Blood Count 4.56 M/mm3 (4.6-6.20); Red Cell Distribution Width 13.3 % (11.5-14.5); White Blood Count 14.5 K/mm3 (4.5-10.0)
[2021-03-29 07:17] LABS: Alanine Aminotransferase 39 U/L (4-50); Aspartate Amino Transferase 31 U/L (17-59); Estimated CRCL calculation 90 ml/min; Estimated Glomerular Filt Rate > 60
[2021-03-29] MEDS: ENOXAPARIN 40 MG/0.4 ML SYRINGE SUB-Q (08:58)
[2021-03-29] MEDS: BARICITINIB 2 MG TABLET 4 MG PO (08:58)
[2021-03-29] MEDS: CYANOCOBALAMIN 1,000 MCG TABLET 1000 MCG PO (08:58)
[2021-03-29] MEDS: THERAPEUTIC MULTIVITAMINS/MINERALS TAB (*BKC) 1 TABLET PO (08:58)
[2021-03-29] MEDS: FOLIC ACID 0.4 MG TABLET PO (08:58)
--- NOTE | 2021-03-29 15:27 | PM.IMPN ---
Progress Note: A&P Assessment and Plan (1) 2019 novel coronavirus-infected pneumonia (NCIP): Code(s): U07.1 - COVID-19; J12.82 - Pneumonia due to coronavirus disease 2018 Status: Acute Assessment and Plan: + for COVID and continues to require increased o2 to keeps sats >90 Was on15 L of oxygen and >94% s/p remdesivir 10 days Continue with and baricitin and Decadron CTA shows no PE but it does show bilateral COVID pneumonia Repeat chest x-ray-->Bilateral pulmonary infiltrates, greater on the right, mildly increased on the right since 04/09/2021 inflammatory markers improving plasma given 03/20/21 wean oxygen as tolerated, continue supportive care continuous pulse ox Proning encouraged Transferred to IMU, on AirVo 45L, 60% (2) Acute respiratory failure with hypoxia: Code(s): J96.01 - Acute respiratory failure with hypoxia Status: Acute Assessment and Plan: Secondary to above Continue oxygen as needed to keep sats greater than 90 (3) Essential (primary) hypertension: Code(s): I10 - Essential (primary) hypertension Status: Acute Assessment and Plan: BP stable continue lisinopril and hydrochlorothiazide with parameters Monitor (4) Transaminitis: Code(s): R74.01 - Elevation of levels of liver transaminase levels Status: Acute Assessment and Plan: hepatitis screen negative Liver ultrasound without abnormality likely due to COVID monitor while on remdesivir Subjective Date/time seen: 03/29/21 15:27 Interval history: 03/25 pt seen and evaluated; labs, vs and diagnostic reports reviewed; he continues with SOB on 15 L HF NC; no new complaints / pt seen and evaluated; continues with SOB and [place]; on 15 L HF NC; feeling hopeful; appetite is good 10/ pt with increased O2 needs this morning; +SOB and WESTON sats 88% on 15 HF NC 10/8 pt up to chair; on AirVo; +WESTON 10/ pt continues on AirVo now on 45L; continues +WESTON Review of Systems Review of Systems: All systems reviewed & are unremarkable except as noted in HPI and below Exam Const: General: no acute distress, alert and awake Orientation/consciousness: patient oriented x3 HENMT: Head: normocephalic and atraumatic Face and sinus: face symmetric Mouth: Yes Normal oral and palatal mucosa present Eyes: EOM: EOMs intact bilaterally Neck: Neck: full ROM and trachea midline Chest: Chest palpation & inspection: normal inspection of the chest Resp: Effort & Inspection: normal respiratory effort Cardio: Rate: regular rate Rhythm: regular rhythm Heart sounds: S1 normal heart sound present and S2 normal heart sound present GI: Inspection: normal to inspection Auscultation: normal bowel sounds : General: Yes no CVA tenderness Back/Spine/Pelvis: Back: no CVA tenderness Skin: General skin exam: normal color Rashes: no rashes Neuro: General: patient oriented x3 and CN's II-XI intact bilaterally Speech: normal speech Extrem: General: full ROM and no clubbing, cyanosis or edema Psych: Appearance: grossly normal Affect: normal affect Judgement: Good judgement present (Psych) Objective Data Vital Signs Vital Signs: Vital Signs - 24 hr 03/28/21 16:00 03/28/21 16:20 03/28/21 18:00 Temperature 36.6 C Pulse Rate 105 H 79 88 Respiratory Rate 20 Blood Pressure 85/46 L Pulse Oximetry 92 95 03/28/21 18:56 03/28/21 20:00 03/28/21 20:45 Temperature 36.6 C Pulse Rate 78 75 74 Respiratory Rate 20 20 Blood Pressure 101/50 L Pulse Oximetry 97 97 97 03/28/21 22:00 03/29/21 00:00 03/29/21 00:10 Temperature 36.8 C Pulse Rate 62 65 76 Respiratory Rate 16 16 Blood Pressure 109/58 L Pulse Oximetry 97 97 03/29/21 00:14 03/29/21 01:23 03/29/21 04:00 Temperature 36.4 C Pulse Rate 76 61 76 Respiratory Rate 20 Blood Pressure 103/59 L Pulse Oximetry 96 95 03/29/21 06:00 03/29/21 08:00 03/29/21 08:47 Temperature 35.9 C L Pulse Rate 56 L 63 7
[2021-03-29] MEDS: BENZONATATE 100 MG CAPSULE 200 MG PO (21:10)
[2021-03-29] MEDS: ACETAMINOPHEN 325 MG TABLET 650 MG PO (21:11)
[2021-03-30] VITALS (27 sets, daily range): BP systolic 98–131; BP diastolic 52–69; PULSE 69–126; RESP 18–22; TEMP 36.2–37.2; O2SAT 90–100
[2021-03-30] MEDS: ACETAMINOPHEN 325 MG TABLET 650 MG PO (01:49)
[2021-03-30 04:54] LABS: Basophils Absolute Auto 0.1 K/mm3 (0.0-0.1); Basophils Percent Auto 0.4 % (0.2-1.2); Eosinophils Absolute Auto 0.2 K/mm3 (0-0.3); Eosinophils Percent Auto 1.1 % (0-4.4); Hematocrit 39.1 % (42.0-52.0); Hemoglobin 13.1 g/dL (14.0-18.0); Immature Granulocyte Absolute 0.74 K/mm3 (0.00-0.031); Immature Granulocyte Percent A 5.3 % (0-0.5); Lymphocytes Absolute Auto 0.72 K/mm3 (0.9-3.2); Lymphocytes Percent Auto 5.1 % (18.3-44.2); Mean Corpuscular HGB Conc 33.5 g/dl (32-36); Mean Corpuscular Hemoglobin 29.1 pg (26-34); Mean Corpuscular Volume 86.9 fl (80-100); Monocytes Absolute Auto 0.6 K/mm3 (0.1-0.6); Monocytes Percent Auto 4.6 % (2.6-8.5); Neutrophils Absolute Auto 11.7 K/mm3 (1.3-6.7); Neutrophils Percent Auto 83.5 % (45.5-73.1); Platelet Count Result 354 k/mm3 (150-375); Red Cell Distribution Width 13.4 % (11.5-14.5)
[2021-03-30 05:05] LABS: Alanine Aminotransferase 38 U/L (4-50); Aspartate Amino Transferase 28 U/L (17-59); Estimated CRCL calculation 67 ml/min; Estimated Glomerular Filt Rate > 60
[2021-03-30] MEDS: ENOXAPARIN 40 MG/0.4 ML SYRINGE SUB-Q (08:41)
[2021-03-30] MEDS: BARICITINIB 2 MG TABLET 4 MG PO (08:41)
[2021-03-30] MEDS: THERAPEUTIC MULTIVITAMINS/MINERALS TAB (*BKC) 1 TABLET PO (08:42)
[2021-03-30] MEDS: BENZONATATE 100 MG CAPSULE 200 MG PO ×2 (08:42→17:45)
--- NOTE | 2021-03-30 14:29 | PM.IMPN ---
Progress Note: A&P Assessment and Plan (1) 2019 novel coronavirus-infected pneumonia (NCIP): Code(s): U07.1 - COVID-19; J12.82 - Pneumonia due to coronavirus disease 2018 Status: Acute Assessment and Plan: + for COVID and continues to require increased o2 to keeps sats >90 Was on15 L of oxygen and >94% s/p remdesivir 10 days Continue with and baricitin and Decadron CTA shows no PE but it does show bilateral COVID pneumonia Repeat chest x-ray-->Bilateral pulmonary infiltrates, greater on the right, mildly increased on the right since 04/09/2021 inflammatory markers improving plasma given 03/20/21 wean oxygen as tolerated, continue supportive care continuous pulse ox Proning encouraged Transferred to IMU, on AirVo 45L, 60%, now on NC HF 11 L (2) Acute respiratory failure with hypoxia: Code(s): J96.01 - Acute respiratory failure with hypoxia Status: Acute Assessment and Plan: Secondary to above Continue oxygen as needed to keep sats greater than 90 (3) Essential (primary) hypertension: Code(s): I10 - Essential (primary) hypertension Status: Acute Assessment and Plan: BP stable continue lisinopril and hydrochlorothiazide with parameters Monitor (4) Transaminitis: Code(s): R74.01 - Elevation of levels of liver transaminase levels Status: Acute Assessment and Plan: hepatitis screen negative Liver ultrasound without abnormality likely due to COVID monitor while on remdesivir Subjective Date/time seen: 03/30/21 14:29 Interval history: 03/25 pt seen and evaluated; labs, vs and diagnostic reports reviewed; he continues with SOB on 15 L HF NC; no new complaints / pt seen and evaluated; continues with SOB and [place]; on 15 L HF NC; feeling hopeful; appetite is good 10/ pt with increased O2 needs this morning; +SOB and WESTON sats 88% on 15 HF NC 10/8 pt up to chair; on AirVo; +WESTON 10/9 pt continues on AirVo now on 45L; continues +WESTON 10/10 pt is now on NC HF 11 L; some what improved; no new complaints Review of Systems Review of Systems: All systems reviewed & are unremarkable except as noted in HPI and below Exam Const: General: no acute distress, alert and awake Orientation/consciousness: patient oriented x3 HENMT: Head: normocephalic and atraumatic Ears: hearing grossly normal bilaterally and external ears normal Face and sinus: face symmetric Mouth: Yes Normal oral and palatal mucosa present Eyes: Pupils: Equal, round and reactive pupils present EOM: EOMs intact bilaterally Neck: Neck: full ROM and trachea midline Chest: Chest palpation & inspection: normal inspection of the chest Resp: Effort & Inspection: normal respiratory effort Cardio: Jugular venous distension: no JVD Rate: regular rate Rhythm: regular rhythm Heart sounds: S1 normal heart sound present and S2 normal heart sound present GI: Inspection: normal to inspection Auscultation: normal bowel sounds : General: Yes no CVA tenderness Back/Spine/Pelvis: Back: no CVA tenderness Skin: General skin exam: normal color Rashes: no rashes Neuro: General: patient oriented x3 and CN's II-XI intact bilaterally Cranial nerves: Yes Equal, round and reactive pupils present Speech: normal speech Extrem: General: full ROM and no clubbing, cyanosis or edema Psych: Appearance: grossly normal Affect: normal affect Judgement: Good judgement present (Psych) Objective Data Vital Signs Vital Signs: Vital Signs - 24 hr 03/29/21 16:00 03/29/21 17:05 03/29/21 18:00 Temperature 36.9 C Pulse Rate 72 87 92 Respiratory Rate 20 Blood Pressure 129/78 Pulse Oximetry 97 96 03/29/21 20:00 03/29/21 20:09 03/29/21 21:11 Temperature 37.8 C H 37.8 C H Pulse Rate 100 106 H Respiratory Rate 24 H Blood Pressure 127/64 Pulse Oximetry 94 96 03/29/21 22:00 03/29/21 22:11 03/30/21 00:00 Temperature 36.6 C 37.1 C Pulse Rate 90 105 H Respiratory Rate 20
[2021-03-31] VITALS (18 sets, daily range): BP systolic 99–112; BP diastolic 54–60; PULSE 63–89; RESP 18–24; TEMP 36.4–36.8; O2SAT 92–100
[2021-03-31 05:08] LABS: Basophils Percent Auto 0.3 % (0.2-1.2); Eosinophils Absolute Auto 0.2 K/mm3 (0-0.3); Eosinophils Percent Auto 1.6 % (0-4.4); Hematocrit 37.4 % (42.0-52.0); Hemoglobin 12.8 g/dL (14.0-18.0); Immature Granulocyte Absolute 0.48 K/mm3 (0.00-0.031); Immature Granulocyte Percent A 3.9 % (0-0.5); Lymphocytes Absolute Auto 0.77 K/mm3 (0.9-3.2); Lymphocytes Percent Auto 6.2 % (18.3-44.2); Mean Corpuscular HGB Conc 34.2 g/dl (32-36); Mean Corpuscular Hemoglobin 29.5 pg (26-34); Mean Corpuscular Volume 86.2 fl (80-100); Mean Platelet Volume 9.2 fl (7.4-10.4); Monocytes Absolute Auto 0.7 K/mm3 (0.1-0.6); Monocytes Percent Auto 5.5 % (2.6-8.5); Neutrophils Absolute Auto 10.2 K/mm3 (1.3-6.7); Neutrophils Percent Auto 82.5 % (45.5-73.1); Platelet Count Result 350 k/mm3 (150-375); Red Blood Count 4.34 M/mm3 (4.6-6.20); Red Cell Distribution Width 13.4 % (11.5-14.5); White Blood Count 12.3 K/mm3 (4.5-10.0)
[2021-03-31 05:21] LABS: Alanine Aminotransferase 36 U/L (4-50); Aspartate Amino Transferase 30 U/L (17-59); Estimated CRCL calculation 81 ml/min; Estimated Glomerular Filt Rate > 60
[2021-03-31] MEDS: ENOXAPARIN 40 MG/0.4 ML SYRINGE SUB-Q (08:22)
[2021-03-31] MEDS: THERAPEUTIC MULTIVITAMINS/MINERALS TAB (*BKC) 1 TABLET PO (08:22)
[2021-03-31] MEDS: BARICITINIB 2 MG TABLET 4 MG PO (08:23)
[2021-03-31] MEDS: CYANOCOBALAMIN 1,000 MCG TABLET 1000 MCG PO (08:23)
[2021-03-31] MEDS: FOLIC ACID 0.4 MG TABLET PO (08:23)
[2021-03-31] MEDS: lisinopriL 20 MG TABLET PO (08:23)
[2021-03-31] MEDS: hydroCHLOROthiazide 25 MG TABLET PO (08:23)
--- NOTE | 2021-03-31 12:39 | PM.IMPN ---
Progress Note: A&P Assessment and Plan (1) 2019 novel coronavirus-infected pneumonia (NCIP): Code(s): U07.1 - COVID-19; J12.82 - Pneumonia due to coronavirus disease 2018 Status: Acute Assessment and Plan: + for COVID and continues to require increased o2 to keeps sats >90 Was on15 L of oxygen and >94% s/p remdesivir 10 days Continue with and baricitin and Decadron CTA shows no PE but it does show bilateral COVID pneumonia Repeat chest x-ray-->Bilateral pulmonary infiltrates, greater on the right, mildly increased on the right since 04/09/2021 inflammatory markers improving plasma given 03/20/21 wean oxygen as tolerated, continue supportive care continuous pulse ox Proning encouraged Transferred to IMU, on AirVo 45L, 60%, now on NC HF 11 L, now on 2L NC (2) Acute respiratory failure with hypoxia: Code(s): J96.01 - Acute respiratory failure with hypoxia Status: Acute Assessment and Plan: Secondary to above Continue oxygen as needed to keep sats greater than 90 (3) Essential (primary) hypertension: Code(s): I10 - Essential (primary) hypertension Status: Acute Assessment and Plan: BP stable continue lisinopril and hydrochlorothiazide with parameters Monitor (4) Transaminitis: Code(s): R74.01 - Elevation of levels of liver transaminase levels Status: Acute Assessment and Plan: Resolved hepatitis screen negative Liver ultrasound without abnormality likely due to COVID Subjective Date/time seen: 03/31/21 12:39 Interval history: 03/25 pt seen and evaluated; labs, vs and diagnostic reports reviewed; he continues with SOB on 15 L HF NC; no new complaints 03/26 pt seen and evaluated; continues with SOB and [place]; on 15 L HF NC; feeling hopeful; appetite is good / pt with increased O2 needs this morning; +SOB and [place]STON sats 88% on 15 HF NC 10 pt up to chair; on AirVo; +WESTON / pt continues on AirVo now on 45L; continues +WESTON 10/ pt is now on NC HF 11 L; some what improved; no new complaints 03/31 pt 's respiratory status continues to improve; now on 2 L NC; SOB and [place]STON improved Review of Systems Review of Systems: All systems reviewed & are unremarkable except as noted in HPI and below Exam Const: General: no acute distress, alert and awake Orientation/consciousness: patient oriented x3 HENMT: Head: normocephalic and atraumatic Face and sinus: face symmetric Mouth: Yes Normal oral and palatal mucosa present Eyes: EOM: EOMs intact bilaterally Neck: Neck: full ROM and trachea midline Chest: Chest palpation & inspection: normal inspection of the chest Resp: Effort & Inspection: normal respiratory effort Auscultation: diminished lung sounds Cardio: Jugular venous distension: no JVD Rate: regular rate Rhythm: regular rhythm Heart sounds: S1 normal heart sound present and S2 normal heart sound present GI: Inspection: normal to inspection Auscultation: normal bowel sounds : General: Yes no CVA tenderness Back/Spine/Pelvis: Back: no CVA tenderness Skin: General skin exam: normal color Rashes: no rashes Neuro: General: patient oriented x3 and CN's II-XI intact bilaterally Cranial nerves: Yes Equal, round and reactive pupils present Speech: normal speech Extrem: General: full ROM and no clubbing, cyanosis or edema Psych: Appearance: grossly normal Affect: normal affect Judgement: Good judgement present (Psych) Objective Data Vital Signs Vital Signs: Vital Signs - 24 hr 03/30/21 14:00 03/30/21 16:00 03/30/21 16:14 Temperature 37.2 C Pulse Rate 115 H 85 99 Respiratory Rate Blood Pressure 110/61 Pulse Oximetry 92 03/30/21 16:15 03/30/21 18:00 03/30/21 20:00 Temperature 36.2 C L Pulse Rate 88 126 H Respiratory Rate 20 Blood Pressure 131/69 Pulse Oximetry 92 98 03/30/21 20:14 03/30/21 20:42 03/30/21 22:00 Temperature Pulse Rate 113 H 112 H 94 Respiratory Rate Blood Pressure
--- NOTE | 2021-03-31 14:27 | PC.NURSE ---
This patient, Bryan Yang, was received from [IMU] on 03/31/21 at 1426. Patient/family oriented to unit policies and routines
--- NOTE | 2021-03-31 14:41 | PC.NURSE ---
This patient, Bryan Yang, was transferred to [facility] on 03/31/21 at 1438. Personal belongings sent with patient. Report given to Jenny. Appropriate documentation sent with patient.
--- NOTE | 2021-03-31 18:14 | PC.NURSE ---
Called down to IMU because pt stated that he could not find his insurance card or doctors card. Pt stated that he put it in the bedside table compartment. IMU looked in the room that he was in and could not find it both patient and I looked in all of his bags.
[2021-04-01] VITALS (8 sets, daily range): BP systolic 98–100; BP diastolic 54; PULSE 77–97; RESP 18–20; TEMP 36.5–36.6; O2SAT 87–96
[2021-04-01 06:45] LABS: Basophils Absolute Auto 0.1 K/mm3 (0.0-0.1); Basophils Percent Auto 0.7 % (0.2-1.2); Eosinophils Absolute Auto 0.2 K/mm3 (0-0.3); Eosinophils Percent Auto 1.9 % (0-4.4); Hematocrit 37.5 % (42.0-52.0); Immature Granulocyte Absolute 0.63 K/mm3 (0.00-0.031); Immature Granulocyte Percent A 5.3 % (0-0.5); Lymphocytes Percent Auto 8.5 % (18.3-44.2); Mean Corpuscular HGB Conc 34.7 g/dl (32-36); Mean Corpuscular Hemoglobin 29.3 pg (26-34); Mean Corpuscular Volume 84.5 fl (80-100); Monocytes Absolute Auto 0.7 K/mm3 (0.1-0.6); Monocytes Percent Auto 6.3 % (2.6-8.5); Neutrophils Absolute Auto 9.1 K/mm3 (1.3-6.7); Neutrophils Percent Auto 77.3 % (45.5-73.1); Platelet Count Result 368 k/mm3 (150-375); Red Blood Count 4.44 M/mm3 (4.6-6.20); Red Cell Distribution Width 13.2 % (11.5-14.5); White Blood Count 11.8 K/mm3 (4.5-10.0)
[2021-04-01 06:51] LABS: Alanine Aminotransferase 43 U/L (4-50); Aspartate Amino Transferase 45 U/L (17-59); Estimated CRCL calculation 81 ml/min; Estimated Glomerular Filt Rate > 60
[2021-04-01] MEDS: ENOXAPARIN 40 MG/0.4 ML SYRINGE SUB-Q (08:32)
[2021-04-01] MEDS: BENZONATATE 100 MG CAPSULE 200 MG PO (08:32)
[2021-04-01] MEDS: THERAPEUTIC MULTIVITAMINS/MINERALS TAB (*BKC) 1 TABLET PO (08:32)
[2021-04-01] MEDS: lisinopriL 20 MG TABLET PO (08:32)
[2021-04-01] MEDS: BARICITINIB 2 MG TABLET 4 MG PO (08:32)
[2021-04-01] MEDS: hydroCHLOROthiazide 25 MG TABLET PO (08:32)
--- NOTE | 2021-04-01 11:03 | PCNWS ---
Weekly nutritional screen. Patient is tolerating current diet with adequate intake. No weight loss reported. No nutritional needs at this time.
--- NOTE | 2021-04-01 11:45 | HOMEO2EVAL ---
Evaluation was performed at [facility] Home Oxygen Evaluation RC: Home Oxygen (O2) Evaluation Start: 04/01/21 08:00 Freq: ONCE Status: Active Protocol: RPE Activity Type Activity Date Activity User E-Sign Co-Sign Detail Recorded Client Recorded Date Recorded By Document 04/01/21 11:25 APRIL [email or web address] 04/01/21 11:45 APRIL Document 04/01/21 11:26 APRIL [email or web address] 04/01/21 11:45 APRIL Document 04/01/21 11:27 APRIL [email or web address] 04/01/21 11:45 APRIL Document 04/01/21 11:28 APRIL [email or web address] 04/01/21 11:45 APRIL Document 04/01/21 11:40 APRIL [email or web address] 04/01/21 11:45 APRIL 04/01/21 04/01/21 04/01/21 11:25 11:26 11:27 Home O2 Evaluation Test Phase Resting Resting Exercise Oxygen Delivery Room Air Nasal Cannula Nasal Cannula Oxygen Flow Rate (L/min) 1 1 Pulse Oximetry (90-100 %) 87 L 92 87 L Home Oxygen Evaluation Comments Treatment Charges O2 Evaluation - Inpatient 04/01/21 04/01/21 11:28 11:40 Home O2 Evaluation Test Phase Exercise Resting Oxygen Delivery Nasal Cannula Nasal Cannula Oxygen Flow Rate (L/min) 2 1 Pulse Oximetry (90-100 %) 91 93 Home Oxygen Evaluation Comments HOME O2 REQUIRES AT 1 L REST AND 2 L WITH EXERTION Treatment Charges
--- NOTE | 2021-04-01 11:55 | PCRCNOTE ---
WILL ARRANGE HOME O2 WITH [facility]. WILL BRING TRANSPORT TANK TO PT ROOM PRIOR TO D/C HOME TO USE UNTIL DME SETS UP O2 AT HOME.PT NEEDS 1 L REST AND 2 L WITH ACTIVITY.
--- NOTE | 2021-04-01 13:26 | PM.DS ---
DS: Admitting Diagnosis Discharge Date 04/01/21 Admitting Diagnosis SOB DS: Discharge Diagnosis Discharge Diagnosis (1) 2019 novel coronavirus-infected pneumonia (NCIP): Code(s): U07.1 - COVID-19; J12.82 - Pneumonia due to coronavirus disease 2019 Status: Acute Assessment and Plan: The patient is a 61-year-old man with a past medical history hypertension, who presented to the emergency room for worsening shortness of breath after testing positive for COVID-19 on 03/14/2021. Initial vitals showed stable blood pressure 113/61, normal heart rate at 91 beats per minute, normal oxygenation 97% on room air, mild fever. Initial labs showed normal CBC with slight elevation neutrophils at 77%, normal coag panel. ABG showed elevated pH, low PC of 2 an HC03 for hyperventilation. The patient was admitted into the hospital for further evaluation monitoring COVID-19. During his hospitalization he became hypoxic and requiring oxygen. He was started on Remdesivir which he received for 10 days as well as dexamethasone for 10 days. CTA shows no PE but it does show bilateral COVID pneumonia. Convalescent plasma given 03/20/21. The patient continued to get worse and required Airvo. The patient then agreed to be started on Baricitinib which helped prevent progression of oxygen requirement. Patient is feeling much better at this time and home oxygen evaluation showed he requires 1 L of oxygen at rest and 2 with exertion. Patient is stable and ready for discharge at this time where he will have oxygen set up. Educated on pulse oximetry and weaning oxygen as tolerated. Follow-up PCP in 1 week. Return to ER warnings given. The patient understands and agrees with the plan all questions answered. (2) Acute respiratory failure with hypoxia: Code(s): J96.01 - Acute respiratory failure with hypoxia Status: Acute (3) Essential (primary) hypertension: Code(s): I10 - Essential (primary) hypertension Status: Acute Assessment and Plan: Will hold the patient's blood pressure medications since his blood pressure has been low normal, he has lost over 10 lb during hospitalization, and he has been feeling lightheaded at times. Will have him check his blood pressure twice a day and follow-up with PCP for further adjustments. (4) Transaminitis: Code(s): R74.01 - Elevation of levels of liver transaminase levels Status: Acute Assessment and Plan: Resolved hepatitis screen negative Liver ultrasound without abnormality likely due to COVID DS: Summary Hospital Course Hospital Course: see above Status at Discharge Cognitive/behavioral status at discharge: Stable, improved. Time Spent with Patient Time attestation: Total time spent providing and/or coordinating discharge services: 39 Time spent: Greater than 30 minutes Exam Narrative: General: 61-year-old man sitting up in the chair watching TV, resting comfortably on 1L via NC. Appears comfortable. In no acute distress. Skin: No jaundice or cyanosis. Good skin turgor. Neck: Full range of motion. Supple. Respiratory: Lungs are clear to auscultation bilaterally. No wheezing, rales or rhonchi. No bony chest wall tenderness. Cardiovascular: The heart has a regular rate and rhythm without murmur. Lower extremities: No lower extremity edema. Distal pulses are easily palpated. No calf tenderness to palpation. Gastrointestinal: The abdomen is soft, nontender and nondistended with active bowel sounds. Psychiatric: Lucid and oriented. Memory intact. Neurologic: No focal deficits. Speech is clear. No facial drooping. DS: Data Data Completed and Pending Labs on day of discharge: Labs from last 24 hours 04/01/21 04/01/21 06:00 06:00 WBC 11.8 H RBC 4.44 L Hgb 13.0 L Hct 37.5 L MCV 84.5 MCH 29.3 MCHC 34.7 RDW 13.2 Plt Count 368 MPV 9.0 Immature Gran % (Auto) 5.3 H Neut % (Auto) 77.3 H Lymph % (Auto)
== END 2021-04-01 14:54 | disposition home or self-care (01) | DRG 177 ==
LOC: ANHED 23:12 → ANH3MEDSUR 03-19 06:35 → ANHIMU 03-27 15:39 → ANH3MEDSUR 04-01 07:18 → ANHIMU 04-03 14:25
PROVIDERS: Emergency Medicine; Nurse Practitioner Adult Health; Physician Assistant; Admitting Provider Internal Medicine; Emergency Provider Emergency Medicine; PCP Registered Nurse; Visit Provider Physician Assistant
DX: U07.1 COVID-19 (principal); J12.82 Pneumonia due to coronavirus disease 2019; J96.01 Acute respiratory failure with hypoxia; I10 Essential (primary) hypertension
CPT/HCPCS: 36415; 36430; 36600; 71045; 71275; 76705; 80048; 80074; 80076; 82375; 82565; 82728; 82805; 83050; 83615; 83735; 84450; 84460; 85014; 85018; 85025; 85027; 85380; 85610; 86140; 86900; 86901; 93005; 94618; 99285; A9270; J0456; J0696; J1650; J7050; J8540; P9059; Q9967

== ENCOUNTER 2023-10-05 06:13 | Day surgery (SDC) | payer MEDICARE, SELFPAY ==
[2023-08-25 08:36] VITALS: BMI 29.0
--- NOTE | 2023-09-28 13:16 | PM.HPGS ---
History of Present Illness History of Present Illness Consent: Risks, benefits, and alternatives have been discussed and questions answered. Patient agrees to proceed with procedure. Chief complaint: Neoplasm Screening Narrative: Bryan Yang is a 63 year old male Referred for colon cancer screening. Review of Systems Review of Systems: All systems reviewed & are unremarkable except as noted in HPI and below PMFSH Past Medical History Medical History Erectile dysfunction Essential (primary) hypertension Hypertension Nephrolithiasis 03/2020, 05/2020 - s/p ESWL Umbilical hernia without mention of obstruction or gangrene Surgical History Surgical History H/O umbilical hernia repair History of inguinal hernia repair, bilateral 1986 History of sinus surgery 1980s Family History Family History Mother Breast cancer Father Emphysema, unspecified Social History Social History Smoking status: Never smoker Second hand tobacco smoke exposure: No Alcohol intake: current Drinks per week: 1 Alcohol use details: occasional glass/ 2 sips of wine, maybe on a holiday Substance use: never Substance use type: does not use Living arrangements: alone Gender identity (if verbalized by the patient): Male Spiritual care concerns: No Meds Home Medications and Allergies Home Medications Medication Instructions Recorded Confirmed Type Beet Root 1,200 mg PO DAILY 09/12/20 10/05/23 History apple cider vinegar 500 mg tablet 500 mg PO DAILY 09/12/20 10/05/23 History multivitamin with minerals (Men's 1 tablet PO DAILY 09/12/20 10/05/23 History One Daily tablet) vitamin B12 1,000 mcg-folic acid 1 tablet sublingual EVERY OTHER DAY 09/12/20 10/05/23 History 400 mcg sublingual tablet lisinopril 20 mg tablet 20 mg PO DIRECTED 09/15/23 10/05/23 History Allergies Allergy/AdvReac Type Severity Reaction Status Date / Time No Known Allergies Allergy Mild Verified 10/05/23 07:21 Exam Resp: Auscultation: clear to auscultation bilaterally Cardio: Rate: regular rate Rhythm: regular rhythm GI: GI Palp: Yes Soft to palpation and No Tenderness to palpation present (GI) Assessment and Plan Assessment and plan (1) Screen for colon cancer: Code(s): Z12.11 - Encounter for screening for malignant neoplasm of colon Status: Inactive Assessment and Plan: Colonoscopy with possible biopsy or polypectomy or cautery or injection of substances.
[2023-10-05 07:22] VITALS: BP 131/77; PULSE 78; RESP 18; TEMP 36.8; O2SAT 99
--- NOTE | 2023-10-05 07:44 | P.PNAN_ITS ---
Anes - Initial Pre Proc Eval Procedure: Operation Date: 10/05/23 08:30 Proposed Procedures p Screening Colonoscopy - Andrei Shirley MD Date/Time: 10/05/23 07:44 Surgeon: Andrei Shirley MD Pre Op Diagnosis: Neoplasm Screening Patient Data Age: 63 Gender: M Height: 1.83 m Weight: 97.069 kg Last Vital Signs Temp 36.8 C 10/05/23 07:22 Pulse 78 10/05/23 07:22 Resp 18 10/05/23 07:22 BP 131/77 10/05/23 07:22 Pulse Ox 99 10/05/23 07:22 O2 Del Method Room Air 10/05/23 07:22 Allergies Allergy/AdvReac Type Severity Reaction Status Date / Time No Known Allergies Allergy Mild Verified 10/05/23 07:21 Home Medications Medication Instructions Recorded Confirmed Type Beet Root 1,200 mg PO DAILY 09/12/20 10/05/23 History apple cider vinegar 500 mg tablet 500 mg PO DAILY 09/12/20 10/05/23 History multivitamin with minerals (Men's 1 tablet PO DAILY 09/12/20 10/05/23 History One Daily tablet) vitamin B12 1,000 mcg-folic acid 1 tablet sublingual EVERY OTHER DAY 09/12/20 10/05/23 History 400 mcg sublingual tablet lisinopril 20 mg tablet 20 mg PO DIRECTED 09/15/23 10/05/23 History Patient hx anesthesia problems: none Family hx anesthesia problems: none Results Review: All pre-operative results and documents have been reviewed as part of the pre- operative evaluation. [facility] Past Medical History Medical History Erectile dysfunction Essential (primary) hypertension Hypertension Nephrolithiasis 03/2020, 05/2020 - s/p ESWL Umbilical hernia without mention of obstruction or gangrene Surgical History Surgical History H/O umbilical hernia repair History of inguinal hernia repair, bilateral 1986 History of sinus surgery 1980s Family History Family History Mother Breast cancer Father Emphysema, unspecified Social History Social History Smoking status: Never smoker Second hand tobacco smoke exposure: No Alcohol intake: current Drinks per week: 1 Alcohol use details: occasional glass/ 2 sips of wine, maybe on a holiday Substance use: never Substance use type: does not use Living arrangements: alone Gender identity (if verbalized by the patient): Male Spiritual care concerns: No Anes - Eval Final PreProcedure Day of Procedure 10/05/23 07:44 Patient weight: overweight Heart: regular rate and rhythm Lungs: clear to auscultation Airway: Mallampati scale class II Neurological: alert and oriented Last oral intake: >/= 8 hours ASA classification: II Emergent: no Anesthetic plan: proceed Anesthesia type and monitoring: general GIVS and standard monitoring Results Review: All pre-operative results and documents have been reviewed as part of the pre- operative evaluation. Informed Consent: The patient's anesthetic plan and its attendant risks and benefits were discussed with the patient/family/POA. Questions were solicited and answers provided to the satisfaction of the patient/family/POA.
[2023-10-05] MEDS: LACTATED RINGERS 1,000 ML 150 ML IV CONT (07:49)
[2023-10-05 08:32] VITALS: BP 113/62; PULSE 73; RESP 16; O2SAT 96
[2023-10-05 08:42] VITALS: BP 117/63; PULSE 76; RESP 18; O2SAT 96
[2023-10-05 08:52] VITALS: BP 119/76; PULSE 74; RESP 20; O2SAT 96
--- NOTE | 2023-10-05 09:00 | WPDANESPN ---
Anes - Prog Note Post-Op Date/Time: 10/05/23 09:00 Cardiovascular status: normal Respiratory status: normal Airway patency: baseline Mental status: baseline Post-Op hydration status: normal Vital Signs: Last Vital Signs Temp 36.8 C 10/05/23 07:22 Pulse 74 10/05/23 08:52 Resp 20 10/05/23 08:52 BP 119/76 10/05/23 08:52 Pulse Ox 96 10/05/23 08:52 O2 Del Method Room Air 10/05/23 08:52 Pain Score (VAS): 0 I/O: Intake & Output 10/04/23 10/05/23 10/05/23 23:59 07:59 15:59 Intake Total 700 Balance 700 Patient Feedback: Patient satisfied with anesthetic care.
== END 2023-10-05 08:56 | disposition home or self-care (01) ==
PROVIDERS: PCP Registered Nurse; Visit Provider Internal Medicine Gastroenterology
PROC: 0DJD8ZZ Inspection of Lower Intestinal Tract, Via Natural or Artificial Opening Endoscopic (ICD-10-PCS; CPT 45378; principal; 2023-10-05 08:30)
DX: Z12.11 Encounter for screening for malignant neoplasm of colon (principal); D12.3 Benign neoplasm of transverse colon
CPT/HCPCS: 45380

== ENCOUNTER 2023-10-05 08:00 | Outpatient (NON) | payer MEDICARE, SELFPAY | END 2023-10-05 08:01 | disposition home or self-care (01) | PROVIDERS: PCP Registered Nurse; Visit Provider Internal Medicine Gastroenterology | DX: Z12.11 Encounter for screening for malignant neoplasm of colon (principal) | CPT/HCPCS: 88305 ==